=== PATIENT | female | born 1950 | race Caucasian/White ===

== ENCOUNTER 2016-11-24 17:11 | Emergency (ER) | payer OTHER, BC ==
[2016-11-24 17:20] VITALS: BP 101/66; PULSE 82; TEMP 98.4; BMI 26.1
--- NOTE | 2016-11-24 17:33 | PDOC ---
History of Present Illness - General History Source: Patient, Old Records Exam Limitations: No Limitations - History of Present Illness Initial Comments: 11/24/16 17:43 The patient is a 66 year old female with a significant past medical history of kidney stones who presents to the emergency department today complaining of shortness of breath since this morning. The patient states that she was reclining when her most recent episode occurred. The patient noted that her shortness of breath is accompanied by brief, 3-4 second palpitations. The patient notes that her symptoms are alleviated long inspirational breaths and burping. The patient states the she experienced similar symptoms in mid October that resolved. The patient denies chest pain, blackout , or dizziness. The patient denies nausea, vomiting, and sweats The patient denies any previous heart complications. <Tre Guerrero - Last Filed: 11/24/16 17:51> <Karin Zheng - Last Filed: 11/24/16 17:59> - General Chief Complaint: Shortness of Breath Stated Complaint: shortness of breath Time Seen by Provider: 11/24/16 17:17 Past History <Tre Guerrero - Last Filed: 11/24/16 17:51> - Past Medical History Suicide Attempt (Hx): No Other medical history: pt denies - Immunization History Immunization Up to Date: Yes - Psycho/Social/Smoking Cessation Hx Anxiety: No Suicidal Ideation: No Smoking Status: No Smoking History: Never smoked Have you smoked in the past 12 months: No Number of Cigarettes Smoked Daily: 0 If you are a former smoker, when did you quit?: 0 Cigars Per Day: 0 Information on smoking cessation initiated: No Hx Alcohol Use: No Drug/Substance Use Hx: No Substance Use Type: None <Karin Zheng - Last Filed: 11/24/16 17:59> - Past Medical History Allergies/Adverse Reactions: Allergies Allergy/AdvReac Type Severity Reaction Status Date / Time Penicillins AdvReac Mild Nausea Verified 11/24/16 17:16 Sulfa (Sulfonamide AdvReac Mild Nausea Verified 11/24/16 17:16 Antibiotics) Home Medications: Ambulatory Orders NK [No Known Home Medication] 11/24/16 Review of Systems - Review of Systems Able to Perform ROS?: Yes Comments:: 11/24/16 17:45 GENERAL/CONSTITUTIONAL: No fever or chills. No weakness. HEAD, EYES, EARS, NOSE AND THROAT: No change in vision. No ear pain or discharge. No sore throat. CARDIOVASCULAR: (+) Shortness of breath accompanied by minor palpitations. No chest pain. RESPIRATORY: No cough, wheezing, or hemoptysis. GASTROINTESTINAL: No nausea, vomiting, diarrhea or constipation. GENITOURINARY: No dysuria, frequency, or change in urination. MUSCULOSKELETAL: No joint or muscle swelling or pain. No neck or back pain. SKIN: No rash NEUROLOGIC: No headache, vertigo, loss of consciousness, or change in strength/ sensation. ENDOCRINE: No increased thirst. No abnormal weight change. HEMATOLOGIC/LYMPHATIC: No anemia, easy bleeding, or history of blood clots. ALLERGIC/IMMUNOLOGIC: No hives or skin allergy. <Tre Guerrero - Last Filed: 11/24/16 17:51> *Physical Exam - Vital Signs Last Vital Signs Temp Pulse Resp BP Pulse Ox 98.4 F 82 18 101/66 100 11/24/16 17:17 11/24/16 17:17 11/24/16 17:17 11/24/16 17:17 11/24/16 17:17 - Physical Exam Comments: 11/24/16 17:46 GENERAL: Awake, alert, and fully oriented, in no acute distress HEAD: No signs of trauma EYES: PERRLA, EOMI, sclera anicteric, conjunctiva clear ENT: Auricles normal inspection, hearing grossly normal, nares patent, oropharynx clear without exudates. Moist mucosa NECK: Normal ROM, supple, no lymphadenopathy, JVD, or masses LUNGS: Breath sounds equal, clear to auscultation bilaterally. No wheezes, and no crackles HEART: Regular rate and rhythm, normal S1 and S2, no murmurs, rubs or gallops ABDOMEN: Soft, nontender, normoactive bowel sounds. No guarding, no rebound. No masses EXTREMITIES: Normal range of motion, no edema. No clubbing or cyanosis. No cords, erythema, or tenderness NEUROLOGICAL: Cranial nerves II through XII grossly intact. Normal speech, normal gait SKIN: Warm, Dry, normal turgor, no rashes or lesions noted. <Tre Guerrero - Last Filed: 11/24/16 17:51> - Vital Signs Last Vital Signs Temp Pulse Resp BP Pulse Ox 98.4 F 82 18 101/66 100 11/24/16 17:17 11/24/16 17:17 11/24/16 17:17 11/24/16 17:17 11/24/16 17:17 <Karin Zheng - Last Filed: 11/24/16 17:59> Heart Score/ECG Review - ECG Impressions Comment:: EKG read 17:54- NSR 72 bpm, no acute ST/T changes <Karin Zheng - Last Filed: 11/24/16 17:59> *DC/Admit/Observation/Transfer - Attestations Scribe Attestion: 11/24/16 17:46 Documentation prepared by Tre Guerrero, acting as medical laboratory technical officer for Karin Zheng MD. <Tre Guerrero - Last Filed: 11/24/16 17:51> - Discharge Dispostion Admit: No <Karin Zheng - Last Filed: 11/24/16 17:59> Diagnosis at time of Disposition: Shortness of breath - Discharge Dispostion Condition at time of disposition: Stable - Patient Instructions Printed Discharge Instructions: DI for Shortness of Breath
[2016-11-24 18:10] LABS: BASOPHIL 0.4 % (0-2.0); EOSINOPHIL 1.1 % (0-4.5); MCH 30.9 pg (25.7-33.7); MCHC 33.4 g/dl (32.0-36.0); MEAN CELL VOLUME 92.4 fl (80-96); MEAN PLT VOLUME 8.4 fl (7.5-11.1); NEUTROPHILS 71.4 % (42.8-82.8); PLATELET COUNT 159 K/MM3 (134-434); RDW 11.7 % (11.6-15.6); WHITE BLOOD COUNT 5.4 K/mm3 (4.0-10.0)
[2016-11-24 18:32] LABS: ALBUMIN 3.9 g/dl (3.5-5.0); BILIRUBIN,TOTAL 0.5 mg/dl (0.2-1.0); CALCIUM 8.7 mg/dl (8.4-10.2); CPK(DFH) 59 IU/L (26-140); TOT PROT 6.5 g/dl (6.4-8.3)
[2016-11-24 18:56] LABS: TROPONIN I (DFP) < 0.03 ng/ml (0.03-0.50)
--- NOTE | 2016-12-02 10:28 | EKG ---
Test Reason : Blood Pressure : / mmHG Vent. Rate : 072 BPM Atrial Rate : 072 BPM P-R Int : 122 ms QRS Dur : 074 ms QT Int : 406 ms P-R-T Axes : 024 057 055 degrees QTc Int : 444 ms NORMAL SINUS RHYTHM NORMAL ECG WHEN COMPARED WITH ECG OF 08-OCT-2013 04:15, PREVIOUS ECG HAS UNDETERMINED RHYTHM, NEEDS REVIEW Confirmed by DEANGELO MAN, SHAHZAD ([id number]) on 12/02/2016 10:28:02 AM Referred By: DR CAI Confirmed By:SHAHZAD BRIGHT MD
== END 2016-11-24 19:09 | disposition home or self-care (01) ==
LOC: FER 17:11
DX: R06.02 Shortness of breath (principal); Z87.442 Personal history of urinary calculi
CPT/HCPCS: 36415; 71010-TC; 80053; 82550; 84484; 85025; 93005; 99282-25

== ENCOUNTER 2017-02-06 17:05 | Emergency (ER) | payer OTHER, BC ==
[2017-02-06 17:09] VITALS: BP 121/71; PULSE 68; TEMP 98.3; BMI 27.1
--- NOTE | 2017-02-06 17:23 | PDOC ---
History of Present Illness - General Chief Complaint: Pain, Acute Stated Complaint: NECK PAIN Time Seen by Provider: 02/06/17 17:07 History Source: Patient Exam Limitations: No Limitations - History of Present Illness Initial Comments: 02/06/17 17:19 The patient is a 66-year-old female, with no significant past medical history, who presents to the emergency department with left-sided neck pain for the past 48 hours. She states that she was in her usual state of health, until she woke up 2 days ago with "a stiff neck." She has left sided, mild, dull, aching pain that is present at most times during the day. It is alleviated by "certain positions." It is worsened by movement at the neck and left shoulder. It does not radiate. She denies headache, focal weakness or paresthesias. She denies fever, rash, photophobia. She denies trauma. She states that she took Aleve yesterday, with complete resolution of the pain. However, it reoccurred after 6 hours. She states that she feels "that the muscles on the left side of her neck or stiff." Past History - Past Medical History Allergies/Adverse Reactions: Allergies Allergy/AdvReac Type Severity Reaction Status Date / Time Penicillins AdvReac Mild Nausea Verified 02/06/17 17:06 Sulfa (Sulfonamide AdvReac Mild Nausea Verified 02/06/17 17:06 Antibiotics) Home Medications: Ambulatory Orders Diazepam [Valium] 5 mg PO HS PRN #2 tablet MDD 3 02/06/17 Naproxen [Naprosyn] 500 mg PO BID PRN #20 tablet 02/06/17 Suicide Attempt (Hx): No Other medical history: DENIES - Immunization History Immunization Up to Date: Yes - Psycho/Social/Smoking Cessation Hx Anxiety: No Suicidal Ideation: No Smoking Status: No Smoking History: Never smoked Have you smoked in the past 12 months: No Number of Cigarettes Smoked Daily: 0 If you are a former smoker, when did you quit?: 0 Cigars Per Day: 0 Hx Alcohol Use: No Drug/Substance Use Hx: No Substance Use Type: None Review of Systems - Review of Systems Comments:: 02/06/17 17:20 CONSTITUTIONAL: Absent: fever, chills, fatigue EYES: Absent: visual changes ENT: Absent: ear pain, sore throat CARDIOVASCULAR: Absent: chest pain, palpitations, loss of consciousness RESPIRATORY: Absent: cough, SOB GI: Absent: abdominal pain, nausea, vomiting, constipation, diarrhea GENITOURINARY: Absent: dysuria, frequency, hematuria MUSKULOSKELETAL: Present: See history of present illness SKIN: Absent: rash NEURO: Absent: headache, dizziness *Physical Exam - Vital Signs Last Vital Signs Temp Pulse Resp BP Pulse Ox 98.3 F 68 18 121/71 100 02/06/17 17:06 02/06/17 17:06 02/06/17 17:06 02/06/17 17:06 02/06/17 17:06 - Physical Exam Comments: 02/06/17 17:20 GENERAL: Well-appearing, well-nourished. No apparent distress. HEENT: Normocephalic, atraumatic. PERRL, EOM intact. NECK: No cervical spine tenderness. Carotid pulses 2+ and symmetric. No carotid bruits auscultated. There is left cervical, lower, paraspinal muscle tenderness and spasm. There is left upper trapezius muscle tenderness and spasm. Palpation of both muscle bodies reproduces her symptoms. CARDIOVASCULAR: Normal S1, S2. Regular rate and rhythm. PULMONARY: Clear to auscultation bilaterally. ABDOMEN: Soft, non-distended, non-tender. EXTREMITIES: Normal ROM in all four extremities. No gross deformities. SKIN: Warm, dry. No rash NEUROLOGICAL: No focal neurological deficits. Medical Decision Making - Medical Decision Making 02/06/17 17:21 The patient is well-appearing and in no acute distress Her clinical presentation is most consistent with cervical paraspinal muscle strain and associated trapezius muscle strain Clinical impression: Cervical paraspinal muscle strain Trapezius muscle strain I discussed the physical exam findings, ancillary test results and final diagnoses with the patient. I answered all of the patient's questions. The patient was satisfied with the care received and felt comfortable with the discharge plan and treatment plan. The patient will call their primary care physician within 24 hours to arrange follow-up and will return to the Emergency Department with any new, persistent or worsening symptoms. *DC/Admit/Observation/Transfer Diagnosis at time of Disposition: Cervical muscle strain, Trapezius muscle strain - Discharge Dispostion Disposition: HOME Condition at time of disposition: Stable - Prescriptions Prescriptions: Naproxen [Naprosyn] 500 mg PO BID PRN #20 tablet PRN Reason: Pain Diazepam [Valium] 5 mg PO HS PRN #2 tablet MDD 3 PRN Reason: Pain - Patient Instructions Printed Discharge Instructions: Muscle Strain, DI for Cervical Muscle Strain Additional Instructions: Return to the emergency department immediately with ANY new, persistent or worsening symptoms. You MUST call and follow up with your doctor tomorrow. Please make sure your doctor reviews the results of your emergency department evaluation.
== END 2017-02-06 17:33 | disposition home or self-care (01) ==
LOC: FER 17:05
DX: S16.1XXA Strain of muscle, fascia and tendon at neck level, initial encounter (principal); S46.812A Strain of other muscles, fascia and tendons at shoulder and upper arm level, left arm, initial encounter; X58.XXXA Exposure to other specified factors, initial encounter; Y93.9 Activity, unspecified; Y92.9 Unspecified place or not applicable
CPT/HCPCS: 99282-25

== ENCOUNTER 2019-06-29 10:09 | Emergency (ER) | payer OTHER, BC | END 2019-06-29 15:25 | disposition home or self-care (01) | LOC: JER 10:09 ==

== ENCOUNTER 2019-10-29 17:02 | Inpatient (IN) | payer OTHER, BC ==
[2019-10-29] MEDS ORDERED: SODIUM CHLORIDE 1,000 ML IV STA (17:46)
[2019-10-29] MEDS ORDERED: ACETAMINOPHEN 1000 MG/100 ML VIAL (NON FORMULARY) IVPB ONE (17:46)
[2019-10-29] MEDS ORDERED: ACETAMINOPHEN INJECTION 100 ML IVPB ONE (17:50)
[2019-10-29 18:10] LABS: BASO % 0.2 % (0-2.0); EOS % 0.1 % (0-4.5); HEMOGLOBIN 12.9 GM/dl (10.7-15.3); MCH 31.6 pg (25.7-33.7); MEAN CELL VOLUME 95.7 fl (80-96); MEAN PLT VOLUME 9.5 fl (7.5-11.1); NEUT % 86.7 % (42.8-82.8); PLATELET COUNT 132 K/MM3 (134-434); RBC 4.08 M/mm3 (3.60-5.2); RDW 12.2 % (11.6-15.6); WHITE BLOOD COUNT 6.7 K/mm3 (4.0-10.8)
[2019-10-29 18:16] LABS: EPITHELIAL CELLS FEW /hpf
[2019-10-29 18:23] LABS: ALBUMIN 3.5 g/dl (3.4-5.0); BILIRUBIN,TOTAL 0.8 mg/dl (0.2-1); CALCIUM 8.3 mg/dl (8.5-10); POTASSIUM 3.8 mmol/L (3.5-5.1); TOT PROT 6.4 g/dl (6.4-8.2)
--- NOTE | 2019-10-29 18:44 | PDOC ---
*Physical Exam - Vital Signs Last Vital Signs Temp Pulse Resp BP Pulse Ox 101 F H 101 H 18 105/70 97 10/29/19 17:02 10/29/19 17:02 10/29/19 17:02 10/29/19 17:02 10/29/19 17:02 ED Treatment Course - LABORATORY CBC & Chemistry Diagram: 10/29/19 17:58 10/29/19 17:58 - ADDITIONAL ORDERS Additional order review: Laboratory Results 10/29/19 12 17:58 17:58 Sodium 135 L Potassium 3.8 Chloride 100 Carbon Dioxide 27 Anion Gap 8 BUN 17.0 Creatinine 1.0 Est GFR (CKD-EPI)AfAm 66.57 Est GFR (CKD-EPI)NonAf 57.44 Random Glucose 119 H Calcium 8.3 L Total Bilirubin 0.8 AST 29 ALT 31 Alkaline Phosphatase 61 Total Protein 6.4 Albumin 3.5 Urine Color Yellow Urine Appearance Clear Urine pH 7.0 Urine Protein 2+ H Urine Glucose (UA) Negative Urine Ketones 2+ H Urine Blood 1+ H Urine Nitrite Negative Urine Bilirubin 1+ H Urine Urobilinogen 1.0 Ur Leukocyte Esterase Negative Urine RBC 5-10 Urine WBC 0-2 Ur Transition Epith Cell Few 10/29/19 17:58 RBC 4.08 MCV 95.7 MCHC 33.0 RDW 12.2 MPV 9.5 Neutrophils % 86.7 H Lymphocytes % 6.0 L Monocytes % 7.0 Eosinophils % 0.1 Basophils % 0.2 - Medications Given in the ED: ED Medications Discontinued Medications Generic Name Dose Route Start Last Admin Trade Name Sharon PRN Reason Stop Dose Admin Acetaminophen 1,000 mg 10/29/19 17:46 10/29/19 18:00 Ofirmev Injection - IVPB 10/29/19 17:47 1,000 mg ONCE ONE Administration Medical Decision Making - Medical Decision Making 10/29/19 20:56 Pt was signed out to me. She came with fever and RLQ pain. She has a hx of diverticulitis and colitis. She has ill contacts - her granddaughter recently had a cold and she drives her grandchildren to school, so it is possible that the fever is related to that. Pt has normal labs; No WBC count. She has no fever at this time; but she still has RLQ pain and some R flank pain. Pt has no dyuria. She has remote history of a kidney stone x 2 in 2012, but never since that time. She states that this doesn't feel like her stone and she has no dysuria. 10/29/19 21:42 Patient Name: YI GARCIA THIS IS A PRELIMINARY REPORT FROM IMAGING OFFICE SECRETARY DATE OF SERVICE: 2019-10-29 19:17:48 IMAGES: [id number] EXAM: ABDOMEN \T\ PELVIS CT WITH CONTR HISTORY: Right lower quadrant abdominal pain. Procedure: Contiguous axial tomographic sections were obtained from the dome of the diaphragm to the bilateral ischial tuberosities after the use of intravenous contrast. Sagittal and coronal reformatted images are provided. COMPARISON: October 08, 2013. Preliminary findings/impression: 1. Findings consistent with acute appendicitis. 2. Abdominal and pelvic ileus, likely secondary to the above. 3. Hypodense bilateral renal lesions, consistent with cysts. A follow-up CT is recommended to confirm stability. 4. Atrophic pancreatic parenchyma. 5. Mild atherosclerotic calcifications. 6. Additional findings as described above appear stable 10/29/19 21:42 Pt's PMD is Maximino; he admits to [facility] 10/29/19 22:49 Suri Medrano is aware of the patient. He will have pt transferred to the [facility] ; no beds there currently. Pt will be admitted upstairs as a Satellite patient tomorrow AM transfer to [facility]. Pt is PCN and SULFA allergy; she will be treated with levaquin and flagyl. Discharge - Discharge Information Problems reviewed: Yes Clinical Impression/Diagnosis: Right lower quadrant pain, Appendicitis Condition: Guarded - Admission Yes - Follow up/Referral - Patient Discharge Instructions - Post Discharge Activity
--- NOTE | 2019-10-29 18:59 | PDOC ---
Documentation entered by Solange Lee SCRIBE, acting as scribe for Senthil Gil MD. Senthil Gil MD: This documentation has been prepared by the alfonsoibeJesus Maria, SCRIBE, under my direction and personally reviewed by me in its entirety. I confirm that the documentation accurately reflects all work, treatment, procedures, and medical decision making performed by me. History of Present Illness - General Chief Complaint: Pain Stated Complaint: RLQ ABD, BACK PAIN, FEVER Time Seen by Provider: 10/29/19 17:28 - History of Present Illness Initial Comments: 10/29/19 18:05 Patient is a 69 year old female with a significant past medical history of diverticulosis,colon adenoma and kidney stones who presents to the emergency department with 1 day of right lower quadrant abdominal pain, back pain and fever with a severity of 7/10. Patient states that prior to her pain she had cold like symptoms and 5 episodes of associated NBNB diarrhea and 2 episodes of vomiting with a fever of 101. Patient states the pain worsens when ambulating and is tender to palpations. She denies headache or dizziness. She denies recent dysuria, frequency, urgency or hematuria. She denies recent chest pain or shortness of breath. Allergies: Erythromycin base, Penicillins, and Sulfa (Sulfonamide Antibiotics) Past surgical history: None reported. Social history: Nonsmoker. Denies EtOH use and recreational drug use. Past History - Past Medical History Allergies/Adverse Reactions: Allergies Allergy/AdvReac Type Severity Reaction Status Date / Time erythromycin base Allergy Severe PALPITATION Verified 10/29/19 17:06 S Penicillins AdvReac Mild Nausea Verified 10/29/19 17:06 Sulfa (Sulfonamide AdvReac Mild Nausea Verified 10/29/19 17:06 Antibiotics) Home Medications: Ambulatory Orders Bifidobacterium Infantis [Align] 10.5 mg PO DAILY 10/29/19 Multivit-Min/Folic Acid/Dhm095 [Alive Women's Gummy Vitamins] 1 each PO DAILY Cardiac Disorders: Yes (MILD VALVE CALCIFICATION) COPD: No GI Disorders: Yes (COLON ADENOMA, DIVERTICULOSIS) Kidney Stones: Yes - Immunization History Immunization Up to Date: Yes - Psycho Social/Smoking Cessation Hx Smoking Status: No Smoking History: Never smoked Have you smoked in the past 12 months: No Number of Cigarettes Smoked Daily: 0 If you are a former smoker, when did you quit?: 0 Cigars Per Day: 0 Information on smoking cessation initiated: No Hx Alcohol Use: No Drug/Substance Use Hx: No Substance Use Type: None Review of Systems - Review of Systems Able to Perform ROS?: Yes Comments:: 10/29/19 18:05 CONSTITUTIONAL:+ Fever. +Chills. Absent: Diaphoresis, Generalized Weakness, Malaise, Loss of Appetite HEENT: Absent: Rhinorrhea, Nasal Congestion, Throat Pain, Throat Swelling, Difficulty Swallowing, Mouth Swelling, Ear Pain, Eye Pain, Visual Changes CARDIOVASCULAR: Absent: Chest Pain, Syncope, Palpitations, Irregular Heart Rate, Lightheadedness , Peripheral Edema RESPIRATORY: Absent: Cough, Shortness of Breath, SOB with Exertion, Orthopnea, Wheezing, Stridor, Hemoptysis GASTROINTESTINAL:+Abdominal Pain. +Nausea. +Vomiting, +Diarrhea Absent: Abdominal Distension, Constipation, Melena, Hematochezia GENITOURINARY: Absent: Dysuria, Frequency, Urgency, Hesitancy, Flank Pain, Genital Pain MUSCULOSKELETAL:+Back pain. Absent: Myalgia, Arthralgia, Joint Swelling, Neck Pain SKIN: Absent: Rash, Itching, Pallor HEMEATOLOGIC/IMMUNOLOGIC: Absent: Easy Bleeding, Easy Bruising, Lymphadenopathy, Frequent infections ENDOCRINE: Absent: Unexplained Weight Gain, Unexplained Weight Loss, Heat Intolerance, Cold Intolerance NEUROLOGIC: Absent: Headache, Focal Weakness, Paresthesias, Vertigo, Lightheadedness, Unsteady Gait, Seizure, Mental Status Changes, Incontinence PSYCHIATRIC: Absent: Anxiety, Depression *Physical Exam - Vital Signs Last Vital Signs Temp Pulse Resp BP Pulse Ox 101 F H 101 H 18 105/70 97 10/29/19 17:02 10/29/19 17:02 10/29/19 17:02 10/29/19 17:02 10/29/19 17:02 - Physical Exam 10/29/19 18:57 GENERAL: The patient is awake, alert, and fully oriented, in no acute distress. Skin is warm. HEAD: Normal with no signs of trauma. EYES: Pupils equal, round and reactive to light, extraocular movements intact, sclera anicteric, conjunctiva clear. ENT: Ears normal, nares patent, oropharynx clear without exudates. Moist mucous membranes. NECK: Normal range of motion, supple without lymphadenopathy, JVD, or masses. LUNGS: Breath sounds equal, clear to auscultation bilaterally. No wheezes, and no crackles. HEART: Mild tachycardia. Regular rate and rhythm, normal S1 and S2 without murmur, rub or gallop. ABDOMEN: The abdomen is soft with significant focal tenderness in the right lower quadrant in the region of McBurney's point. There is no Gill sign. There is no guarding or rebound. There is no tenderness in the upper abdomen or in the left lower quadrant. EXTREMITIES: Normal range of motion, no edema. No clubbing or cyanosis. No cords, erythema, or tenderness. NEUROLOGICAL: Cranial nerves II through XII grossly intact. Normal speech, normal gait. PSYCH: Normal mood, normal affect. SKIN: Warm, Dry, normal turgor, no rashes or lesions noted. ED Treatment Course - LABORATORY CBC & Chemistry Diagram: 10/29/19 17:58 10/29/19 17:58 - RADIOLOGY Radiology Studies Ordered: Category Date Time Status ABDOMEN & PELVIS CT WITH CONTR [CT] Stat CT Scan 10/29/19 17:44 Ordered Medical Decision Making - Medical Decision Making 10/29/19 18:57 Patient is a 69-year-old woman with a history of prior diverticulitis and colitis. She presents 3 days of cough, and now 24 hours of diarrhea and nausea with right lower quadrant abdominal pain. On examination there is focal right lower quadrant tenderness without guarding or rebound tenderness. Initial impression is diverticulitis versus acute appendicitis. Patient will be hydrated with IV normal saline, laboratory and urine work-up has been ordered, and CT scan of the abdomen and pelvis with IV contrast has been ordered. Patient endorsed to Dr. Jody Gregory at 7 PM with work-up results pending. Further plan pending results and serial evaluation. Discharge - Discharge Information Problems reviewed: Yes Clinical Impression/Diagnosis: Right lower quadrant pain - Follow up/Referral Referrals: Garth Stanton MD [Primary Care Provider] - - Patient Discharge Instructions - Post Discharge Activity
[2019-10-29] MEDS ORDERED: morphine SULFATE 4 MG/ML VIAL IVPUSH PRN (21:58)
[2019-10-29] MEDS ORDERED: SODIUM CHLORIDE 1,000 ML IV SCH (22:00)
[2019-10-29] MEDS ORDERED: ACETAMINOPHEN 1000 MG/100 ML VIAL (NON FORMULARY) IVPB PRN (23:53)
--- NOTE | 2019-10-29 23:53 | HP ---
CHIEF COMPLAINT: right lower quadrant pain and fever PCP:Dr. Stanton GI: Dr. Ugalde HISTORY OF PRESENT ILLNESS: 69 year old female with history of diverticulosis,colon adenoma and kidney stones who presents to the emergency department with 1 day of right lower quadrant abdominal pain, back pain and fever with a severity of 7/10. She reported prior to her pain she had cold like symptoms and 5 episodes of associated diarrhea and 2 episodes of vomiting with a fever of 101. Patient states the pain worsens when she is ambulating and is tender to touch. Upon evaluation in the ER CT can of abdomen demonstrated acute appendicitis. She was given a dose of Ofirmev, IV flagyl and levoquin and intravenous fluids. Surgery - Dr. Medrano was consulted and plan is to transfer patient to [facility] when bed is available. Recent Travel: no PAST MEDICAL HISTORY: diverticulosis PAST SURGICAL HISTORY: none Social History: Smoking:no Alcohol:no Drugs: no Allergies erythromycin base Allergy (Severe, Verified 10/29/19 17:06) PALPITATIONS Penicillins Adverse Reaction (Mild, Verified 10/29/19 17:06) Nausea Sulfa (Sulfonamide Antibiotics) Adverse Reaction (Mild, Verified 10/29/19 17:06) Nausea HOME MEDICATIONS: Home Medications Medication Instructions Recorded Bifidobacterium Infantis [Align] 10.5 mg PO DAILY 10/29/19 Multivit-Min/Folic Acid/[id number] 1 each PO DAILY 10/29/19 [Alive Women's Gummy Vitamins] REVIEW OF SYSTEMS CONSTITUTIONAL: Absent: fever, chills, diaphoresis, generalized weakness, malaise, loss of appetite, weight change HEENT: Absent: rhinorrhea, nasal congestion, throat pain, throat swelling, difficulty swallowing, mouth swelling, ear pain, eye pain, visual changes CARDIOVASCULAR: Absent: chest pain, syncope, palpitations, irregular heart rate, lightheadedness , peripheral edema RESPIRATORY: Absent: cough, shortness of breath, dyspnea with exertion, orthopnea, wheezing, stridor, hemoptysis GASTROINTESTINAL: Absent: RLQ abdominal pain, abdominal distension, nausea, vomiting, diarrhea, constipation, melena, hematochezia GENITOURINARY: Absent: dysuria, frequency, urgency, hesitancy, hematuria, flank pain, genital pain MUSCULOSKELETAL: Absent: myalgia, arthralgia, joint swelling, back pain, neck pain SKIN: Absent: rash, itching, pallor HEMATOLOGIC/IMMUNOLOGIC: Absent: easy bleeding, easy bruising, lymphadenopathy, frequent infections ENDOCRINE: Absent: unexplained weight gain, unexplained weight loss, heat intolerance, cold intolerance NEUROLOGIC: Absent: headache, focal weakness or paresthesias, dizziness, unsteady gait, seizure, mental status changes, bladder or bowel incontinence PSYCHIATRIC: Absent: anxiety, depression, suicidal or homicidal ideation, hallucinations. PHYSICAL EXAMINATION Vital Signs - 24 hr 10/29/19 10/29/19 10/29/19 17:02 20:07 23:01 Temperature 101 F H 99 F 98.6 F Pulse Rate 101 H Pulse Rate [ 86 85 Left Apical] Respiratory 18 16 16 Rate Blood Pressure 105/70 Blood Pressure 109/63 109/83 [Right Arm] O2 Sat by Pulse 97 98 100 Oximetry (%) GENERAL: awake alert and fully oriented no acute distress HEAD: normal EYES: pupils equal round and reactive to light EARS, NOSE, THROAT: ears normal nares patent NECK:normal LUNGS: breath sounds clear to auscultation bilaterally nonlabored breathing effort no use of accessory muscles HEART: regular rate and rhythm, normal S1 and S2 ABDOMEN: tenderness to right lower quadrant on deep palpation no acute abdomen MUSCULOSKELETAL: normal ROM UPPER EXTREMITIES: 2+ pulses warm, well-perfused no cyanosis LOWER EXTREMITIES: 2+ pulses warm on palpation well-perfused no pitting edema NEUROLOGICAL: no neuro focal deficits PSYCHIATRIC: cooperative SKIN: warm dry normal turgor no rashes or lesions noted Laboratory Results - last 24 hr 10/29/19 10/29/19 10/29/19 17:58 17:58 17:58 WBC 6.7 RBC 4.08 Hgb 12.9 Hct 39.0 MCV 95.7 MCH 31.6 MCHC 33.0 RDW 12.2 Plt Count 132 L MPV 9.5 Absolute Neuts (auto) 5.8 Neutrophils % 86.7 H Lymphocytes % 6.0 L Monocytes % 7.0 Eosinophils % 0.1 Basophils % 0.2 Sodium 135 L Potassium 3.8 Chloride 100 Carbon Dioxide 27 Anion Gap 8 BUN 17.0 Creatinine 1.0 Est GFR (CKD-EPI)AfAm 66.57 Est GFR (CKD-EPI)NonAf 57.44 Random Glucose 119 H Calcium 8.3 L Total Bilirubin 0.8 AST 29 ALT 31 Alkaline Phosphatase 61 Total Protein 6.4 Albumin 3.5 Urine Color Yellow Urine Appearance Clear Urine pH 7.0 Urine Protein 2+ H Urine Glucose (UA) Negative Urine Ketones 2+ H Urine Blood 1+ H Urine Nitrite Negative Urine Bilirubin 1+ H Urine Urobilinogen 1.0 Ur Leukocyte Esterase Negative Urine RBC 5-10 Urine WBC 0-2 Ur Transition Epith Cell Few ASSESSMENT/PLAN: Mrs. Hernandez is a 69 year old female with history of diverticulosis,colon adenoma and kidney stones who presented with right lower quadrant pain and fever. CT can of abdomen demonstrated acute appendicitis. Admit to [facility]. Patient being transferred to [facility] when bed is available. 1. Acute Appendicitis Symptomatic with abdominal tenderness,no leukocytosis, currently afebrile, BP stable, no tachycardia She was given a dose of IV Ofirmev with improvement in pain, a dose of IV Flagyl and Levoquin and intravenous fluids. Surgery - Dr. Medrano consulted NPO Continue with IVF NS at 60cc/hr Tylenol IV for pain and fever Morphine IV for severe pain as needed Visit type - Emergency Visit Emergency Visit: Yes ED Registration Date: 10/29/19 Care time: The patient presented to the Emergency Department on the above date and was hospitalized for further evaluation of their emergent condition. - New Patient This patient is new to me today: Yes Date on this admission: 10/30/19 - Critical Care Critical Care patient: No
[2019-10-30 00:05] VITALS: BMI 27.6
--- NOTE | 2019-10-30 07:22 | CONSULT ---
- Consultation REQUESTING PROVIDER: CONSULT REQUEST: We have been asked to surgically evaluate this patient for acute appendicitis PCP:Jessa North HISTORY OF PRESENT ILLNESS: 69 year old female with history of diverticulosis, colon adenoma and kidney stones who presented to the emergency department with 1 day of right lower quadrant abdominal pain, back pain and fever with a severity of 7/10. She reported prior to her pain she had cold like symptoms and 5 episodes of associated diarrhea and 2 episodes of vomiting with a fever of 101. Patient states the pain worsens when she is ambulating and is tender to touch. Upon evaluation in the ER CT can of abdomen demonstrated acute appendicitis. Recent Travel: no PAST MEDICAL HISTORY: diverticulosis PAST SURGICAL HISTORY: none Social History: Smoking:no Alcohol:no Drugs: no Allergies erythromycin base Allergy (Severe, Verified 10/29/19 17:06) PALPITATIONS Penicillins Adverse Reaction (Mild, Verified 10/29/19 17:06) Nausea Sulfa (Sulfonamide Antibiotics) Adverse Reaction (Mild, Verified 10/29/19 17:06) Nausea HOME MEDICATIONS: Home Medications Medication Instructions Recorded Bifidobacterium Infantis [Align] 10.5 mg PO DAILY 10/29/19 Multivit-Min/Folic Acid/[id number] 1 each PO DAILY 10/29/19 [Alive Women's Gummy Vitamins] REVIEW OF SYSTEMS CONSTITUTIONAL: Absent: +fever, chills, diaphoresis, generalized weakness, malaise, loss of appetite, weight change HEENT: Absent: rhinorrhea, nasal congestion, throat pain, throat swelling, difficulty swallowing, visual changes CARDIOVASCULAR: Absent: chest pain, syncope, palpitations, irregular heart rate, lightheadedness , RESPIRATORY: Absent: cough, shortness of breath, dyspnea with exertion, orthopnea, GASTROINTESTINAL: Absent: +RLQ abdominal pain, abdominal distension, nausea, +vomiting, diarrhea, constipation, GENITOURINARY: Absent: dysuria, frequency, urgency, hesitancy, hematuria, flank pain, genital pain MUSCULOSKELETAL: Absent: myalgia, arthralgia, joint swelling, back pain, neck pain SKIN: Absent: rash, itching, pallor HEMATOLOGIC/IMMUNOLOGIC: Absent: easy bleeding, easy bruising, lymphadenopathy, frequent infections ENDOCRINE: Absent: unexplained weight gain, unexplained weight loss, heat intolerance, cold intolerance NEUROLOGIC: Absent: headache, focal weakness or paresthesias, dizziness, unsteady gait, seizure, mental status changes, bladder or bowel incontinence PSYCHIATRIC: Absent: anxiety, depression, suicidal or homicidal ideation, hallucinations. PHYSICAL EXAMINATION Vital Signs Temp 98.9 F 10/30/19 06:00 Pulse 112 H 10/30/19 06:00 Resp 16 10/30/19 06:00 BP 151/61 10/30/19 06:00 Pulse Ox 99 10/30/19 06:00 Intake & Output 10/29/19 10/29/19 10/30/19 11:59 23:59 11:59 Intake Total 300 Balance 300 Weight 132 lb 132 lb 2 oz Intake: IV 300 Normal Saline - 1,000 ml 300 @ 50 mls/hr IV ASDIR ONEYDA Rx#:[id number] Other: Voiding Method Toilet Toilet # Unmeasured Voids Void 1 Bowel Movement No Height 4 ft 10 in Body Mass Index (BMI) 27.6 Weight Measurement Method Standing Scale Standing Scale GENERAL: awake alert and fully oriented no acute distress HEAD: normal EYES: pupils equal round and reactive to light EARS, NOSE, THROAT: ears normal nares patent LUNGS: unlabored breathing effort no use of accessory muscles on RA HEART: regular rate and rhythm, normal S1 and S2 ABDOMEN: obese, tenderness to right lower quadrant on deep palpation no acute abdomen MUSCULOSKELETAL:moving all extremities without limitation UPPER EXTREMITIES: 2+ pulses warm, well-perfused no cyanosis LOWER EXTREMITIES: 2+ pulses warm on palpation well-perfused no pitting edema NEUROLOGICAL: no neuro focal deficits PSYCHIATRIC: cooperative SKIN: warm dry normal turgor no rashes or lesions noted Abnormal Lab Results 10/29/19 10/29/19 10/29/19 17:58 17:58 17:58 Plt Count 132 L Neutrophils % 86.7 H Lymphocytes % 6.0 L Sodium 135 L Random Glucose 119 H Calcium 8.3 L Urine Protein 2+ H Urine Ketones 2+ H Urine Blood 1+ H Urine Bilirubin 1+ H Laboratory Results - last 24 hr 10/29/19 10/29/19 10/29/19 17:58 17:58 17:58 WBC 6.7 RBC 4.08 Hgb 12.9 Hct 39.0 MCV 95.7 MCH 31.6 MCHC 33.0 RDW 12.2 Plt Count 132 L MPV 9.5 Absolute Neuts (auto) 5.8 Neutrophils % 86.7 H Lymphocytes % 6.0 L Monocytes % 7.0 Eosinophils % 0.1 Basophils % 0.2 Sodium 135 L Potassium 3.8 Chloride 100 Carbon Dioxide 27 Anion Gap 8 BUN 17.0 Creatinine 1.0 Est GFR (CKD-EPI)AfAm 66.57 Est GFR (CKD-EPI)NonAf 57.44 Random Glucose 119 H Calcium 8.3 L Total Bilirubin 0.8 AST 29 ALT 31 Alkaline Phosphatase 61 Total Protein 6.4 Albumin 3.5 Urine Color Yellow Urine Appearance Clear Urine pH 7.0 Urine Protein 2+ H Urine Glucose (UA) Negative Urine Ketones 2+ H Urine Blood 1+ H Urine Nitrite Negative Urine Bilirubin 1+ H Urine Urobilinogen 1.0 Ur Leukocyte Esterase Negative Urine RBC 5-10 Urine WBC 0-2 Ur Transition Epith Cell Few CT abdomen/pelvis 10/29/19: wet read consistent with acute appendicitis Problem List - Problems (1) Appendicitis Assessment/Plan: 69 year old female with history of diverticulosis,colon adenoma and kidney stones who presented with right lower quadrant pain and fever. CT can of abdomen demonstrated acute appendicitis. 1) NPO for OR today with Dr Medrano 2) Continue with IVF NS at 60cc/hr 3) Tylenol IV for pain and fever 4) Morphine IV for severe pain as needed 5) IV ABX per medicine. Evaluation and plan discussed with Dr Medrano. Code(s): K37 - UNSPECIFIED APPENDICITIS (2) Right lower quadrant pain Code(s): R10.31 - RIGHT LOWER QUADRANT PAIN
[2019-10-30 07:55] LABS: HEMATOCRIT 38.2 % (32.4-45.2); HEMOGLOBIN 12.6 GM/dl (10.7-15.3); MCH 32.1 pg (25.7-33.7); MEAN CELL VOLUME 97.3 fl (80-96); MEAN PLT VOLUME 9.4 fl (7.5-11.1); PLATELET COUNT 117 K/MM3 (134-434); RBC 3.93 M/mm3 (3.60-5.2); RDW 12.4 % (11.6-15.6); WHITE BLOOD COUNT 6.7 K/mm3 (4.0-10.8)
[2019-10-30] MEDS ORDERED: DEXTROSE 5%-0.45% SALINE 1,000 ML IV SCH (08:00)
[2019-10-30 08:09] LABS: CALCIUM 7.7 mg/dl (8.5-10); CREATININE 0.9 mg/dl (0.55-1.3); MAGNESIUM 1.7 mg/dL (1.8-2.4); POTASSIUM 3.8 mmol/L (3.5-5.1)
[2019-10-30 08:34] LABS: INR 1.35 (0.82-1.09)
[2019-10-30] MEDS ORDERED: MAGNESIUM SULF 50% (8.12 MEQ/2 ML-1 GM VIAL) IVPB ONE (08:54)
[2019-10-30] MEDS ORDERED: MAGNESIUM 1GM/D5W - 1 GM/100 ML IVPB IVPB ONE (09:15)
[2019-10-30] MEDS: KCL 10 MEQ IVPB 10 MEQ/100 ML INFUS.BAG IVPB SCH ×2 (09:27→10:47)
--- NOTE | 2019-10-30 09:49 | PN ---
Physical Exam: SUBJECTIVE: Patient seen and examined at bedside. Scheduled for OR today. Pain is well-managed. No nausea or vomiting today. PCP: Dr. Stanton OBJECTIVE: Vital Signs Period Temp Pulse Resp BP Sys/Joyce Pulse Ox Last 24 Hr 98.6 F-101 F 85-112 16-18 105-151/61-83 97-100 GENERAL: The patient is awake, alert, and fully oriented, in no acute distress. LUNGS: Breath sounds equal, clear to auscultation bilaterally, no wheezes, no crackles, no accessory muscle use. HEART: Regular rate and rhythm, S1, S2 ABDOMEN: Soft, RLQ tenderness, EXTREMITIES: 2+ pulses, warm, well-perfused, no edema. NEUROLOGICAL: Cranial nerves II through XII grossly intact. Normal speech, gait not observed. PSYCH: Normal mood, normal affect. SKIN: Warm, dry, normal turgor Laboratory Results - last 24 hr 10/29/19 10/29/19 10/29/19 17:58 17:58 17:58 WBC 6.7 RBC 4.08 Hgb 12.9 Hct 39.0 MCV 95.7 MCH 31.6 MCHC 33.0 RDW 12.2 Plt Count 132 L MPV 9.5 Absolute Neuts (auto) 5.8 Neutrophils % 86.7 H Lymphocytes % 6.0 L Monocytes % 7.0 Eosinophils % 0.1 Basophils % 0.2 PT with INR INR Sodium 135 L Potassium 3.8 Chloride 100 Carbon Dioxide 27 Anion Gap 8 BUN 17.0 Creatinine 1.0 Est GFR (CKD-EPI)AfAm 66.57 Est GFR (CKD-EPI)NonAf 57.44 Random Glucose 119 H Calcium 8.3 L Magnesium Total Bilirubin 0.8 AST 29 ALT 31 Alkaline Phosphatase 61 Total Protein 6.4 Albumin 3.5 Urine Color Yellow Urine Appearance Clear Urine pH 7.0 Urine Protein 2+ H Urine Glucose (UA) Negative Urine Ketones 2+ H Urine Blood 1+ H Urine Nitrite Negative Urine Bilirubin 1+ H Urine Urobilinogen 1.0 Ur Leukocyte Esterase Negative Urine RBC 5-10 Urine WBC 0-2 Ur Transition Epith Cell Few 10/30/19 10/30/19 10/30/19 07:00 07:00 07:00 WBC 6.7 RBC 3.93 Hgb 12.6 Hct 38.2 MCV 97.3 H MCH 32.1 MCHC 33.0 RDW 12.4 Plt Count 117 L MPV 9.4 Absolute Neuts (auto) Neutrophils % Lymphocytes % Monocytes % Eosinophils % Basophils % PT with INR 15.0 H INR 1.35 H Sodium 137 Potassium 3.8 Chloride 104 Carbon Dioxide 25 Anion Gap 8 BUN 11.0 Creatinine 0.9 Est GFR (CKD-EPI)AfAm 75.61 Est GFR (CKD-EPI)NonAf 65.24 Random Glucose 97 Calcium 7.7 L Magnesium 1.7 L Total Bilirubin AST ALT Alkaline Phosphatase Total Protein Albumin Urine Color Urine Appearance Urine pH Urine Protein Urine Glucose (UA) Urine Ketones Urine Blood Urine Nitrite Urine Bilirubin Urine Urobilinogen Ur Leukocyte Esterase Urine RBC Urine WBC Ur Transition Epith Cell Active Medications Generic Name Dose Route Start Last Admin Trade Name Freq PRN Reason Stop Dose Admin Acetaminophen 1,000 mg 10/29/19 23:53 Ofirmev Injection - IVPB ONCE PRN FEVER Dextrose/Sodium Chloride 1,000 mls @ 100 mls/hr 10/30/19 08:00 10/30/19 08:30 D5-1/2ns - IV 100 mls/hr ASDIR ONEYDA Administration Potassium Chloride 10 meq in 100 mls @ 100 mls/hr 10/30/19 09:15 10/30/19 09: 27 Potassium Chloride 10 Meq Premix Ivpb - IVPB 10/30/19 11:14 100 mls/hr Q60M ONEYDA Administration Magnesium Sulfate/Dextrose 1 gm in 100 mls @ 100 mls/hr 10/30/19 09:15 09:28 Magnesium 1gm/D5w - IVPB 10/30/19 10:14 100 mls/hr ONCE ONE Administration Morphine Sulfate 2 mg 10/29/19 21:58 10/30/19 03:42 Morphine Sulfate IVPUSH 2 mg Q6H PRN Administration PAIN LEVEL 7 - 10 ASSESSMENT/PLAN 69 year-old female with a PMH significant for diverticulosis, colon adenoma, and kidney stones, admitted for acute appendicitis. Acute appendicitis --to OR today --continue empiric antibiotics --IV fluids --NPO --IV Tylenol, morphine PRN --ID following FEN Fluids: D51/2NS@125mL/hr Electrolytes: replete as indicated Nutrition: NPO DVT propylaxis: SCDs, oob, ambulation Physical therapy Dispo: continues to require inpatient care. Full code. Visit type - Emergency Visit Emergency Visit: Yes Care time: The patient presented to the Emergency Department on the above date and was hospitalized for further evaluation of their emergent condition. - New Patient This patient is new to me today: Yes Date on this admission: 10/30/19 - Critical Care Critical Care patient: No
[2019-10-30] MEDS ORDERED: PROPOFOL 20 ML ONE (11:57)
[2019-10-30] MEDS ORDERED: ROCURONIUM BROMIDE 50 MG/5 ML SYRINGE ONE (11:57)
[2019-10-30] MEDS ORDERED: LIDOCAINE HCL/PF 2% SDV 5ML VIAL ONE (11:58)
[2019-10-30] MEDS ORDERED: MIDAZOLAM HCL 2 MG/2 ML SINGLE DOSE VIAL ONE (11:58)
[2019-10-30] MEDS ORDERED: KETOROLAC TROMETHAMINE 30 MG/1 ML VIAL ONE (11:58)
[2019-10-30] MEDS ORDERED: ONDANSETRON 4 MG/2 ML VIAL ONE ×2 (11:58→14:43)
[2019-10-30] MEDS ORDERED: BUPIVACAINE HCL 0.25% 125 MG/50 ML VIAL ONE (12:06)
[2019-10-30] MEDS ORDERED: BUPIVACAINE HCL/PF 0.5% (5MG/ML) 10 ML VIAL ONE (12:06)
[2019-10-30] MEDS ORDERED: fentaNYL CITRATE 250 MCG/5 ML VIAL ONE (12:41)
[2019-10-30] MEDS ORDERED: SODIUM CHLORIDE 0.9% P/F 10 ML VIAL IJ ONE (13:08)
[2019-10-30] MEDS ORDERED: PHENYLEPHRINE HCL 10 MG/1 ML SINGLE DOSE VIAL ONE (13:08)
[2019-10-30] MEDS ORDERED: NEOSTIGMINE METHYLSULFATE 0.5 MG/ML - 10 ML MDV ONE (13:48)
[2019-10-30] MEDS ORDERED: BUPIVACAINE HCL/PF 0.5% (5MG/ML) 10 ML VIAL IJ ONE (14:00)
--- NOTE | 2019-10-30 14:33 | OP ---
Operative Note - Note: Operative Date: 10/30/19 Pre-Operative Diagnosis: acute appndicitis Operation: laparoscopic appendectomy Findings: gangrenous retrocecal appendicitis Post-Operative Diagnosis: Other (ganrenous retrocecal appendicitis) Surgeon: Gray Medrano Carton Liner: Kelly Adams Anesthesia: General Specimens Removed: appendix Estimated Blood Loss (mls): 20 Drains & Tubes with Location: 10 mm SHAQUILLE
[2019-10-30] MEDS ORDERED: oxyCODONE HCL 5 MG TABLET PO PRN ×2 (14:39)
[2019-10-30] MEDS: ONDANSETRON 4 MG/2 ML VIAL IVPUSH PRN (14:45)
--- NOTE | 2019-10-30 14:46 | SURG ---
Surgery Ceramics Artist Note Ceramics Artist: Kelly Adams PA-C Date of Service: 10/30/19 Diagnosis: acute appndicitis Procedure: laparoscopic appendectomy I was present for the entirety of the operative procedure. For further detail, please refer to operative report. Visit type - Case Type Case Type: ED Admission - Emergency Emergency Visit: Yes Care time: The patient presented to the Emergency Department on the above date and was hospitalized for further evaluation of their emergent condition. - New patient This patient is new to me today: Yes Date on this admission: 10/30/19
[2019-10-30] MEDS ORDERED: PROMETHAZINE HCL 25 MG/1 ML VIAL IVPUSH ONE (14:59)
[2019-10-30] MEDS: DEXTROSE 5%-0.45% SALINE 1,000 ML IV SCH (16:00)
[2019-10-30] MEDS ORDERED: PT OWN MED DRAWER 7, Y5N ONE (17:09)
[2019-10-30] MEDS: morphine CARPU-JECT 2 MG/1 ML DISP.SYRIN IVPUSH PRN (19:05)
[2019-10-30] MEDS: FAMOTIDINE 20 MG/50 ML IVPB 20 MG/50 ML MG IVPB SCH (22:53)
[2019-10-31] MEDS: morphine CARPU-JECT 2 MG/1 ML DISP.SYRIN IVPUSH PRN (02:52)
[2019-10-31] MEDS ORDERED: PT OWN MED DRAWER 7, Y5N ONE ×3 (04:58→17:00)
--- NOTE | 2019-10-31 07:47 | PN ---
Physical Exam: SUBJECTIVE: Patient seen and examined OBJECTIVE: Vital Signs Period Temp Pulse Resp BP Sys/Joyce Pulse Ox Last 24 Hr 97.7 F-100.6 F 88-110 16-18 85-146/47-70 95-97 GENERAL: The patient is awake, alert, and fully oriented, in no acute distress. LUNGS: Breath sounds equal, clear to auscultation bilaterally, no wheezes, no crackles, no accessory muscle use. HEART: Regular rate and rhythm, S1, S2 ABDOMEN: Soft, RLQ tenderness, EXTREMITIES: 2+ pulses, warm, well-perfused, no edema. NEUROLOGICAL: Cranial nerves II through XII grossly intact. Normal speech, gait not observed. PSYCH: Normal mood, normal affect. SKIN: Warm, dry, normal turgor Laboratory Results - last 24 hr 10/30/19 10/30/19 10/30/19 07:00 07:00 07:00 WBC 6.7 RBC 3.93 Hgb 12.6 Hct 38.2 MCV 97.3 H MCH 32.1 MCHC 33.0 RDW 12.4 Plt Count 117 L MPV 9.4 PT with INR 15.0 H INR 1.35 H Sodium 137 Potassium 3.8 Chloride 104 Carbon Dioxide 25 Anion Gap 8 BUN 11.0 Creatinine 0.9 Est GFR (CKD-EPI)AfAm 75.61 Est GFR (CKD-EPI)NonAf 65.24 Random Glucose 97 Calcium 7.7 L Magnesium 1.7 L Blood Type Antibody Screen 10/30/19 10/30/19 07:00 07:00 WBC RBC Hgb Hct MCV MCH MCHC RDW Plt Count MPV PT with INR INR Sodium Potassium Chloride Carbon Dioxide Anion Gap BUN Creatinine Est GFR (CKD-EPI)AfAm Est GFR (CKD-EPI)NonAf Random Glucose Calcium Magnesium Blood Type O POSITIVE O POSITIVE Antibody Screen Negative Active Medications Generic Name Dose Route Start Last Admin Trade Name Freq PRN Reason Stop Dose Admin Acetaminophen 1,000 mg 10/29/19 23:53 10/31/19 06:23 Ofirmev Injection - IVPB 1,000 mg ONCE PRN Administration FEVER Acetaminophen 650 mg 10/30/19 14:40 Tylenol - PO Q6H PRN FEVER Fentanyl 50 mcg 10/30/19 14:42 Sublimaze Injection - IVPUSH [id number] PRN PAIN-PACU ORDER X 4 DOSES ONLY Metronidazole 250 mg in 50 mls @ 50 mls/hr 10/30/19 10:00 10/31/19 02:00 Flagyl 250mg Premixed Ivpb - IVPB 50 mls/hr Q8H-IV ONEYDA Administration Levofloxacin 750 mg in 150 mls @ 100 mls/hr 10/30/19 22:00 10/30/19 22:53 Levaquin 750 Mg Premixed Ivpb - IVPB 100 mls/hr HS ONEYDA Administration Protocol Dextrose/Sodium Chloride 1,000 mls @ 125 mls/hr 10/30/19 14:41 10/30/19 16:00 D5-1/2ns - IV 125 mls/hr ASDIR ONEYDA Administration Famotidine/Sodium Chloride 20 mg in 50 mls @ 100 mls/hr 10/30/19 22:00 22:53 Pepcid 20 Mg Premixed Ivpb - IVPB 100 mls/hr BID ONEYDA Administration Morphine Sulfate 2 mg 10/30/19 14:42 10/31/19 02:52 Morphine Injection - IVPUSH 2 mg Q6H PRN Administration breakthrough pain Ondansetron HCl 4 mg 10/30/19 14:53 10/30/19 14:45 Zofran Injection IVPUSH 4 mg Q6H PRN Administration NAUSEA AND/OR VOMITING Oxycodone HCl 5 mg 10/30/19 14:39 Roxicodone - PO Q4H PRN PAIN LEVEL 1-5 Oxycodone HCl 10 mg 10/30/19 14:39 Roxicodone - PO Q4H PRN PAIN LEVEL 6-10 ASSESSMENT/PLAN: 69 year-old female with a PMH significant for diverticulosis, colon adenoma, and kidney stones, admitted for acute appendicitis. Gangrenous retrocecal appendicitis s/p lap appendectomy --POD#1 --continue levofloxacin (day #2) and metronidazole (day #2) --start diet --IV Tylenol, morphine PRN --ID following Hypomagnesemia --replete FEN Fluids: PO intake adequate Electrolytes: replete as indicated Nutrition: regular DVT propylaxis: SCDs, oob, ambulation Physical therapy Dispo: continues to require inpatient care. Full code. Visit type - Emergency Visit Emergency Visit: Yes ED Registration Date: 10/30/19 Care time: The patient presented to the Emergency Department on the above date and was hospitalized for further evaluation of their emergent condition. - New Patient This patient is new to me today: No - Critical Care Critical Care patient: No
--- NOTE | 2019-10-31 08:04 | PN ---
Progress Note (short form) - Note Progress Note: GENERAL SURGERY POD #1 s/p Laparoscopic appendectomy (gangrenous; retrocecal) No acute events per RN notes. Alert. Shes OOB and ambulating to bathroom unassisted. Voiding spontaneously. C/o mild incisional tenderness. Adequate pain control. Febrile this morning 100.6 F Using her incentive spirometer as directed. Denies n/v/f/c, CP, palpitations, SOB or MCGUIRE. Last Vital Signs Temp Pulse Resp BP Pulse Ox 100.6 F H 104 H 18 85/49 L 95 12// 06:00 /09/09 06:00 /09/09 06:00 10/31/19 06:00 10/31/19 06:00 Output since surgery //10/30/19 10/31/19 18:22 22:53 06:00 LLQ SHAQUILLE (serous) 90 80 40 Gen: nad ABD: all surgical ports c/d/i LE: SCDs bilat. Compartments soft/nt Problem List - Problems (1) Appendicitis Assessment/Plan: POD #1 s/p Lap appendectomy (gangrenous; retrocecal) Regular diet Cont OOB and ambulate f/u ID consult f/u Labs Incentive spirometer Tylenol for fever > 100.4 F Monitor record SHAQUILLE output q shift, most likely will dc in AM DC planning Code(s): K37 - UNSPECIFIED APPENDICITIS
[2019-10-31 08:11] LABS: BASO % 0.1 % (0-2.0); HEMATOCRIT 32.5 % (32.4-45.2); HEMOGLOBIN 10.9 GM/dl (10.7-15.3); LYMPH % 6.9 % (8-40); MCH 32.2 pg (25.7-33.7); MCHC 33.4 g/dl (32.0-36.0); MEAN CELL VOLUME 96.6 fl (80-96); MEAN PLT VOLUME 9.6 fl (7.5-11.1); MONO % 8.9 % (3.8-10.2); NEUT % 84.1 % (42.8-82.8); PLATELET COUNT 96 K/MM3 (134-434); RBC 3.37 M/mm3 (3.60-5.2); RDW 11.8 % (11.6-15.6); WHITE BLOOD COUNT 5.2 K/mm3 (4.0-10.8)
[2019-10-31 09:08] LABS: ALBUMIN 2.3 g/dl (3.4-5.0); BILIRUBIN,TOTAL 0.8 mg/dl (0.2-1); MAGNESIUM 1.6 mg/dL (1.8-2.4); TOT PROT 4.5 g/dl (6.4-8.2)
[2019-10-31 09:21] LABS: CALCIUM 6.8 mg/dl (8.5-10)
[2019-10-31] MEDS ORDERED: MAGNESIUM SULF 50% (8.12 MEQ/2 ML-1 GM VIAL) IVPB ONE (09:24)
[2019-10-31] MEDS ORDERED: MAGNESIUM SULFATE IN WATER 2 GM/50 ML IVPB IVPB ONE (09:45)
[2019-10-31] MEDS ORDERED: [UNRECOGNIZED DRUG - OTHER] PO SCH (10:00)
[2019-10-31] MEDS ORDERED: FOLIC ACID PO SCH (10:00)
[2019-10-31] MEDS ORDERED: BIFIDOBACTERIUM INFANTIS 10.5 MG PO SCH (10:00)
[2019-10-31] MEDS ORDERED: MULTIVIT MIN PO SCH (10:00)
[2019-10-31] MEDS: FAMOTIDINE 20 MG/50 ML IVPB 20 MG/50 ML MG IVPB SCH (10:25)
--- NOTE | 2019-10-31 10:58 | PN ---
Progress Note (short form) - Note Progress Note: ID CONSULT DICTATED POD#1 LAP APPENDECTOMY PCN ALLERGY CONTINUE EMPIRIC LEVAQUIN/ FLAGYL
--- NOTE | 2019-10-31 13:00 | OP ---
DATE OF OPERATION: 10/30/2019 PREOPERATIVE DIAGNOSIS: Acute appendicitis. POSTOPERATIVE DIAGNOSIS: Gangrenous appendicitis. PROCEDURE: Laparoscopic appendectomy. SURGEON: Gray Medrano MD BUSINESS DEVELOPMENT PROFESSIONAL: Kelly Adams PA-C ANESTHESIA: General. OPERATIVE FINDINGS: There was a gangrenous (perforated) appendicitis, and the appendix was retrocecal in location. There were fecaliths present. The rest of the findings were unremarkable. DESCRIPTION OF PROCEDURE: The patient was placed on the operating room in supine position. After the induction of general anesthesia and placement of a Meek catheter and sequential compression devices on the patient's lower extremities, the abdomen was prepped with ChloraPrep and draped in sterile fashion. Time-out was taken and pneumoperitoneum established above the umbilicus using a Veress needle to an intra-abdominal pressure of 15 mmHg. An additional left lower quadrant 5-mm port was placed and a 12-mm suprapubic port just to the left of the midline. Laparoscopy was carried out, and the previously noted findings were observed. The cecum was grasped and the base of the appendix identified at the confluence of the taenia on the cecum and a window made in the mesoappendix. Using blunt dissection, the mesoappendix was then serially divided for several centimeters, and because of the retrocecal nature of the appendix, an Endo JAVON stapling device was next introduced with purple load and fired across the appendix. There was no evidence of bleeding from the appendiceal stump. Next, using blunt dissection and a LigaSure, the remaining mesoappendix was serially divided until the tip of the appendix was reached. The appendix and the fecaliths were placed in an EndoCatch and brought out through the suprapubic port and pneumoperitoneum re-established. Copious irrigation was carried out until the return was clear and hemostasis was again verified. A 10-mm Darnell-Castro drain was placed in the right lower quadrant and brought out through the left lower quadrant 5-mm port site where the drain was secured to the skin with 2-0 silk suture. Again, hemostasis was verified and all ports were removed under laparoscopic vision without evidence of bleeding from the port sites. The pneumoperitoneum was evacuated and the defect in the fascia at the suprapubic port was closed with a single [id number] 0 Vicryl suture. All port sites were infiltrated with 0.5% Marcaine and the skin edges reapproximated with 4-0 Monocryl in a subcuticular continuous fashion. Steri-Strips and Band-Aid dressings were placed and a Biopatch placed around the drain exit site and the drain connected to bulb self-suction and the procedure terminated at this point. The patient aroused from general anesthesia and transferred to the post anesthesia care unit in stable condition awake and alert. ESTIMATED BLOOD LOSS: 25 mL. REPLACEMENTS: Crystalloid. DRAINS: One 10-mm Darnell-Castro. SPECIMEN: Appendix to Pathology. I, Gray Medrano MD, was physically present in the operating room from the time the patient was placed on the operating room table until she was transferred to the post anesthesia care unit in [employer] company. Gray Medrano MD [id number] MTDD
--- NOTE | 2019-10-31 16:21 | EKG ---
Test Reason : Blood Pressure : / mmHG Vent. Rate : 083 BPM Atrial Rate : 083 BPM P-R Int : 148 ms QRS Dur : 064 ms QT Int : 366 ms P-R-T Axes : 063 041 048 degrees QTc Int : 430 ms NORMAL SINUS RHYTHM NORMAL ECG WHEN COMPARED WITH ECG OF 29-JUN-2019 12:05, NO SIGNIFICANT CHANGE WAS FOUND Confirmed by MD Farida, Greg ([id number]) on 10/31/2019 4:21:03 PM Referred By: DR CARABALLO Confirmed By:Greg Iqbal MD
[2019-10-31] MEDS: ACETAMINOPHEN 325 MG TABLET (FP) PO PRN (17:26)
[2019-11-01] MEDS: ONDANSETRON 4 MG/2 ML VIAL IVPUSH PRN ×2 (01:13→05:35)
[2019-11-01] MEDS ORDERED: PT OWN MED DRAWER 7, Y5N ONE ×3 (01:18→18:07)
[2019-11-01 09:26] LABS: HEMATOCRIT 33.6 % (32.4-45.2); HEMOGLOBIN 11.2 GM/dl (10.7-15.3); MCH 31.7 pg (25.7-33.7); MCHC 33.3 g/dl (32.0-36.0); MEAN CELL VOLUME 95.2 fl (80-96); MEAN PLT VOLUME 9.3 fl (7.5-11.1); PLATELET COUNT 105 K/MM3 (134-434); RBC 3.53 M/mm3 (3.60-5.2)
[2019-11-01 09:35] LABS: CALCIUM 7.3 mg/dl (8.5-10); CREATININE 0.9 mg/dl (0.55-1.3); POTASSIUM 3.6 mmol/L (3.5-5.1)
[2019-11-01 10:35] LABS: PLATELET ESTIMATE DECREASED
--- NOTE | 2019-11-01 11:40 | PN ---
Progress Note (short form) - Note Progress Note: SURGERY 69yo F s/p lap appy POD 2. Pt seen and examined at bedside. Pt states that her abd pain is controlled, but has been complaining of nausea no vomiting. Pt spike a temp of 100.5 yesterday, since then afebrile. Pt tolerating diet and ambulating well. CBC, BMP 11/01/19 09:16 11/01/19 09:16 Vital Signs Temp 98.6 F 11/01/19 10:00 Pulse 89 11/01/19 10:00 Resp 18 11/01/19 10:00 BP 90/57 L 11/01/19 10:00 Pulse Ox 98 11/01/19 10:00 Intake & Output 10/31/19 10/31/19 11/01/19 11:59 23:59 11:59 Intake Total 1500 800 110 Output Total 40 110 120 Balance 1460 690 -10 Weight 138 lb 0.1 oz Intake: IV 1400 D5-1/2Ns - 1,000 ml @ 125 1400 mls/hr IV ASDIR ONEYDA Rx#: [id number] IVPB 100 160 110 Oral 640 Output: Drainage 40 110 20 Right Lower Flank 40 110 20 Emesis 100 Other: Voiding Method Toilet Toilet Toilet # Unmeasured Voids Void 3 1 2 Bowel Movement Yes: diarrhea No # Bowel Movements 2 Weight Measurement Method Standing Scale PE: Gen: A&O X3 Resp: breathing comfortably Abd: soft, nontender, mild distension, drain in place with serosanguinous drainage. Ext: no edema Problem List - Problems (1) Appendicitis Assessment/Plan: Plan -will keep drain in place for now, possibly remove late afternoon or tomorrow morning. -abx as per Med/ID -regular diet -will add reglan for nausea -will continue to monitor today for fevers, if afebrile pt should be ok for discharge either tonight or tomorrow. Pt discussed with Dr. Medrano who agrees with plan Code(s): K37 - UNSPECIFIED APPENDICITIS Qualifiers: Appendicitis type: acute appendicitis Appendicitis gangrene presence: with gangrene
--- NOTE | 2019-11-01 15:11 | PATH ---
Surgical Pathology Report Patient Name: YI GARCIA Med. Rec. #: [id number] /Age/Gender: 1950 (Age: 69) / F Account: [id number] Location: [facility] MED-SURG Taken: 10/30/2019 Received: 10/30/2019 Reported: 11/01/2019 Physicians: MD Jessa Rosenberg, OCTAVIA Specimen(s) Received APPENDIX Clinical History Acute appendicitis Final Diagnosis APPENDIX, APPENDECTOMY: ACUTE NECROTIZING (GANGRENOUS) APPENDICITIS AND PERIAPPENDICITIS. Electronically Signed Kelly Forte M.D. Gross Description Received in formalin labeled "appendix," are 2 markedly fragmented portions of appendix measuring 2.5 and 3.0 cm in length. The shorter portion displays an attached staple line. The outer surfaces are chauhan-huerta, markedly fragmented and disrupted with attached exudate. Sectioning reveals necrotic appearing appendiceal parenchyma. The wall of the appendix averages 0.1 cm in thickness. Cement Mason sections are submitted in one cassette. /10/31/2019 saudi10/31/2019
--- NOTE | 2019-11-01 15:17 | CONS ---
INFECTIOUS DISEASE CONSULTATION DATE OF CONSULTATION: DATE OF DICTATION: 11/01/2019 HISTORY OF PRESENT ILLNESS: The patient is a 69-year-old, female who is evaluated for appendicitis. She presented to the hospital on October 29, 2019, with a 1-day history of worsening right lower quadrant abdominal pain. She was noted to be febrile in the emergency room to 101. CAT scan of the abdomen and pelvis was consistent with acute appendicitis. She was taken to the operating room on October 30, 2019, where a laparoscopic appendectomy was performed. She was found to have a gangrenous, retrocecal appendix. She was empirically treated with Levaquin and Flagyl. At the present time, she is awake and alert. She complains of abdominal distention and gas. She denies any abdominal pain. She reports passing flatus; however, has not had a bowel movement. No reports of nausea or vomiting. Her course complicated by low-grade fever. PAST MEDICAL HISTORY: Positive for diverticulosis and nephrolithiasis. ALLERGIES: PENICILLIN, SULFA, AND ERYTHROMYCIN. Patient reports nausea with PENICILLIN and SULFA. No history of rash or anaphylaxis. MEDICATIONS: Include Levaquin, Flagyl, Tylenol. SOCIAL HISTORY: She resides at home in the community. She is a nonsmoker, nondrinker. SYSTEMS REVIEW: Neurologic: No loss of consciousness, seizure activity, focal weakness. Cardiac: Negative chest pain or palpitations. Respiratory: Negative cough or sputum production. Gastrointestinal: As per HPI. Genitourinary: Negative for urinary tract infection. LABORATORY DATA: White count 5.2, hematocrit 37.5, platelets 96,000. Creatinine 1.0. PHYSICAL EXAMINATION: General: On exam, she is awake and alert. She is not acutely toxic appearing. Vital Signs: Temperature 98.6, T-maximum 100.5, blood pressure 121/86, pulse 87 regular, respirations 20 per minute. Eyes: Sclerae are anicteric. Heart: Heart sounds S1, S2. Lungs: Clear. Abdomen: Slightly distended, tympanitic. Mild diffuse tenderness. Laparoscopic wounds without evidence of infection. Extremities: Negative for edema. Negative Homans sign. IMPRESSION: 1. Postoperative day number 1 laparoscopic appendectomy. 2. Multiple antibiotic allergies. Continue empiric antibiotic coverage of intra-abdominal pathogens in this PENICILLIN-allergic patient with Levaquin and Flagyl. Will follow. Thank you for the kind referral. JORDI REYES M.D. [id number]
[2019-11-01] MEDS: ACETAMINOPHEN 325 MG TABLET (FP) PO PRN (15:55)
[2019-11-01] MEDS: DEXTROSE 5%-0.45% SALINE 1,000 ML IV SCH ×2 (17:47→17:48)
--- NOTE | 2019-11-01 23:26 | PN ---
Progress Note, Physician History of Present Illness: C/O ABDOMINAL DISTENTION, NAUSEA, BLOATING NO C/O ABDOMINAL PAIN LOW GRADE TEMP NOTED - Current Medication List Current Medications: Active Medications Acetaminophen (Ofirmev Injection -) 1,000 mg IVPB ONCE PRN PRN Reason: FEVER Last Admin: 10/31/19 06:23 Dose: 1,000 mg Acetaminophen (Tylenol -) 650 mg PO Q6H PRN PRN Reason: FEVER Last Admin: 11/01/19 15:55 Dose: 650 mg Metronidazole (Flagyl 250mg Premixed Ivpb -) 250 mg in 50 mls @ 50 mls/hr IVPB Q8H-IV ONEYDA Last Admin: 11/01/19 18:21 Dose: 50 mls/hr Levofloxacin (Levaquin 750 Mg Premixed Ivpb -) 750 mg in 150 mls @ 100 mls/hr IVPB HS ONEYDA; Protocol Last Admin: 11/01/19 22:06 Dose: 100 mls/hr Dextrose/Sodium Chloride (D5-1/2ns -) 1,000 mls @ 125 mls/hr IV ASDIR ONEYDA Last Admin: 11/01/19 17:48 Dose: Not Given Metoclopramide HCl (Reglan Injection -) 10 mg IVPUSH Q6H PRN PRN Reason: NAUSEA Ondansetron HCl (Zofran Injection) 4 mg IVPUSH Q6H PRN PRN Reason: NAUSEA AND/OR VOMITING Last Admin: 11/01/19 05:35 Dose: 4 mg - Objective Vital Signs: Vital Signs Temperature 99.6 F 11/01/19 19:00 Pulse Rate 71 11/01/19 19:00 Respiratory Rate 18 11/01/19 19:00 Blood Pressure 108/63 11/01/19 19:00 O2 Sat by Pulse Oximetry (%) 96 11/01/19 19:00 Constitutional: Yes: No Distress Eyes: Yes: Conjunctiva Clear Cardiovascular: Yes: Regular Rate and Rhythm, S1, S2 Respiratory: Yes: CTA Bilaterally Gastrointestinal: Yes: Normal Bowel Sounds, Soft, Other (NON TENDER SHAQUILLE DRAIN WITH SEROSANGUINOUS FLUID) Edema: No Labs: CBC, BMP 11/01/19 09:16 11/01/19 09:16 INR, PTT INR 1.35 (0.82-1.09) H 12/09/19 07:00 Assessment/Plan POD# 2 LAPAROSCOPIC APPENDECTOMY ANTIBIOTIC ALLERGIES CONTINUE LEVAQUIN/FLAGYL; SWITCH TO PO WHEN CLEARED FOR DISCHARGE BY SURGERY
--- NOTE | 2019-11-01 23:29 | PN ---
Physical Exam: SUBJECTIVE: Patient seen and examined at bedside. OBJECTIVE: Vital Signs Period Temp Pulse Resp BP Sys/Joyce Pulse Ox Last 24 Hr 98.4 F-99.6 F 71-95 18-18 90-108/57-73 96-98 GENERAL: The patient is awake, alert, and fully oriented, in no acute distress. LUNGS: Breath sounds equal, clear to auscultation bilaterally, no wheezes, no crackles, no accessory muscle use. HEART: Regular rate and rhythm, S1, S2 ABDOMEN: Soft, RLQ tenderness, EXTREMITIES: 2+ pulses, warm, well-perfused, no edema. NEUROLOGICAL: Cranial nerves II through XII grossly intact. Normal speech, gait not observed. PSYCH: Normal mood, normal affect. SKIN: Warm, dry, normal turgor Laboratory Results - last 24 hr 11/01/19 11/01/19 09:16 09:16 WBC 6.0 RBC 3.53 L Hgb 11.2 Hct 33.6 MCV 95.2 MCH 31.7 MCHC 33.3 RDW 12.0 Plt Count 105 L MPV 9.3 Absolute Neuts (auto) 5.4 Neutrophils % No Result Required. Neutrophils % (Manual) 92.0 H* Lymphocytes % No Result Required. Lymphocytes % (Manual) 5.0 L Monocytes % (Manual) 3 L Hypochromia 1+ Platelet Estimate Decreased Sodium 129 L Potassium 3.6 Chloride 101 Carbon Dioxide 24 Anion Gap 4 L BUN 13.0 Creatinine 0.9 Est GFR (CKD-EPI)AfAm 75.61 Est GFR (CKD-EPI)NonAf 65.24 Random Glucose 145 H Calcium 7.3 L Active Medications Generic Name Dose Route Start Last Admin Trade Name Freq PRN Reason Stop Dose Admin Acetaminophen 1,000 mg 10/29/19 23:53 10/31/19 06:23 Ofirmev Injection - IVPB 1,000 mg ONCE PRN Administration FEVER Acetaminophen 650 mg 10/30/19 14:40 11/01/19 15:55 Tylenol - PO 650 mg Q6H PRN Administration FEVER Metronidazole 250 mg in 50 mls @ 50 mls/hr 10/30/19 10:00 11/01/19 18:21 Flagyl 250mg Premixed Ivpb - IVPB 50 mls/hr Q8H-IV ONEYDA Administration Levofloxacin 750 mg in 150 mls @ 100 mls/hr 10/30/19 22:00 11/01/19 22:06 Levaquin 750 Mg Premixed Ivpb - IVPB 100 mls/hr HS ONEYDA Administration Protocol Dextrose/Sodium Chloride 1,000 mls @ 125 mls/hr 10/30/19 14:41 11/01/19 17:48 D5-1/2ns - IV Not Given ASDIR ONEYDA Metoclopramide HCl 10 mg 11/01/19 08:20 Reglan Injection - IVPUSH Q6H PRN NAUSEA Ondansetron HCl 4 mg 10/30/19 14:53 11/01/19 05:35 Zofran Injection IVPUSH 4 mg Q6H PRN Administration NAUSEA AND/OR VOMITING ASSESSMENT/PLAN: 69 year-old female with a PMH significant for diverticulosis, colon adenoma, and kidney stones, admitted for acute appendicitis. Gangrenous retrocecal appendicitis s/p lap appendectomy --POD#2 --continue levofloxacin (day #3) and metronidazole (day 3 Post-op ileus --has been nauseous, no appetite, abdomen feels distended although passing gas, no BM --abd xray shows ileus --NPO FEN Fluids: PO intake adequate Electrolytes: replete as indicated Nutrition: regular DVT propylaxis: SCDs, oob, ambulation Physical therapy Dispo: continues to require inpatient care. Full code. Visit type - Emergency Visit Emergency Visit: Yes ED Registration Date: 10/30/19 Care time: The patient presented to the Emergency Department on the above date and was hospitalized for further evaluation of their emergent condition. - New Patient This patient is new to me today: No - Critical Care Critical Care patient: No
[2019-11-02] MEDS ORDERED: MELATONIN 1 MG TABLET PO ONE (00:32)
[2019-11-02] MEDS ORDERED: PT OWN MED DRAWER 7, Y5N ONE ×3 (02:22→16:57)
[2019-11-02] MEDS: ONDANSETRON 4 MG/2 ML VIAL IVPUSH PRN (04:30)
[2019-11-02] MEDS: METOCLOPRAMIDE HCL INJECTION 10 MG/2 ML VIAL IVPUSH PRN (05:20)
[2019-11-02 10:23] LABS: BASO % 0.5 % (0-2.0); EOS % 0.1 % (0-4.5); HEMATOCRIT 33.5 % (32.4-45.2); HEMOGLOBIN 11.6 GM/dl (10.7-15.3); LYMPH % 6.2 % (8-40); MCH 32.8 pg (25.7-33.7); MCHC 34.7 g/dl (32.0-36.0); MEAN CELL VOLUME 94.6 fl (80-96); MEAN PLT VOLUME 8.9 fl (7.5-11.1); MONO % 6.2 % (3.8-10.2); PLATELET COUNT 135 K/MM3 (134-434); RBC 3.54 M/mm3 (3.60-5.2); WHITE BLOOD COUNT 7.2 K/mm3 (4.0-10.8)
[2019-11-02 10:38] LABS: ALBUMIN 2.2 g/dl (3.4-5.0); BILIRUBIN,TOTAL 0.6 mg/dl (0.2-1); CALCIUM 7.4 mg/dl (8.5-10); CREATININE 0.7 mg/dl (0.55-1.3); MAGNESIUM 1.8 mg/dL (1.8-2.4); POTASSIUM 3.4 mmol/L (3.5-5.1); TOT PROT 4.6 g/dl (6.4-8.2)
--- NOTE | 2019-11-02 11:43 | PN ---
Progress Note (short form) - Note Progress Note: Attending Surgeon POD#3 Some nausea; tolerating regular diet and passing flatus; remains on IVAB's VSS AF abdo-soft and tympanitic but not distended; non tender; port sites c/d/i; SHAQUILLE serous WBC nl AXR_? ileus IMP: stable s/p lap appendectomy for gangrenous appendicitis PLAN: OOB walking; IVF;IVAB's continue drain. Gray Medrano MD FACS
[2019-11-02] MEDS: DEXTROSE 5%-0.45% SALINE 1,000 ML IV SCH (12:12)
--- NOTE | 2019-11-02 16:45 | PN ---
Physical Exam: SUBJECTIVE: Patient seen and examined oob to chair. OBJECTIVE: Vital Signs Period Temp Pulse Resp BP Sys/Joyce Pulse Ox Last 24 Hr 97.9 F-99.6 F 71-96 17-18 96-118/58-69 95-97 GENERAL: The patient is awake, alert, and fully oriented, in no acute distress. LUNGS: Breath sounds equal, clear to auscultation bilaterally, no wheezes, no crackles, no accessory muscle use. HEART: Regular rate and rhythm, S1, S2 ABDOMEN: Surgical ports clean, dry, edges well-approximated NEUROLOGICAL: Cranial nerves II through XII grossly intact. Normal speech, gait not observed. PSYCH: Normal mood, normal affect. SKIN: Warm, dry, normal turgor Laboratory Results - last 24 hr 11/02/19 11/02/19 10:10 10:10 WBC 7.2 RBC 3.54 L Hgb 11.6 Hct 33.5 MCV 94.6 MCH 32.8 MCHC 34.7 RDW 12.0 Plt Count 135 MPV 8.9 Absolute Neuts (auto) 6.4 Neutrophils % 87.0 H Lymphocytes % 6.2 L Monocytes % 6.2 Eosinophils % 0.1 Basophils % 0.5 Sodium 135 L Potassium 3.4 L Chloride 102 Carbon Dioxide 26 Anion Gap 7 L BUN 10.0 Creatinine 0.7 Est GFR (CKD-EPI)AfAm 102.46 Est GFR (CKD-EPI)NonAf 88.40 Random Glucose 134 H Calcium 7.4 L Magnesium 1.8 Total Bilirubin 0.6 AST 20 ALT 16 Alkaline Phosphatase 63 D Total Protein 4.6 L Albumin 2.2 L Active Medications Generic Name Dose Route Start Last Admin Trade Name Freq PRN Reason Stop Dose Admin Acetaminophen 1,000 mg 10/29/19 23:53 10/31/19 06:23 Ofirmev Injection - IVPB 1,000 mg ONCE PRN Administration FEVER Acetaminophen 650 mg 10/30/19 14:40 11/01/19 15:55 Tylenol - PO 650 mg Q6H PRN Administration FEVER Metronidazole 250 mg in 50 mls @ 50 mls/hr 10/30/19 10:00 11/02/19 09:23 Flagyl 250mg Premixed Ivpb - IVPB 50 mls/hr Q8H-IV ONEYDA Administration Levofloxacin 750 mg in 150 mls @ 100 mls/hr 10/30/19 22:00 11/01/19 22:06 Levaquin 750 Mg Premixed Ivpb - IVPB 100 mls/hr HS ONEYDA Administration Protocol Dextrose/Sodium Chloride 1,000 mls @ 125 mls/hr 10/30/19 14:41 11/02/19 12:12 D5-1/2ns - IV 125 mls/hr ASDIR ONEYDA Administration Metoclopramide HCl 10 mg 11/01/19 08:20 11/02/19 05:20 Reglan Injection - IVPUSH 10 mg Q6H PRN Administration NAUSEA Ondansetron HCl 4 mg 10/30/19 14:53 11/02/19 04:30 Zofran Injection IVPUSH 4 mg Q6H PRN Administration NAUSEA AND/OR VOMITING ASSESSMENT/PLAN: 69 year-old female with a PMH significant for diverticulosis, colon adenoma, and kidney stones, admitted for acute appendicitis. Gangrenous retrocecal appendicitis s/p lap appendectomy --POD#3 --continue levofloxacin (day #4) and metronidazole (day 4) --will need ID input for antibiotics on discharge Post-op ileus --improved, passing gas, +BM, tolerating clears --todays xray shows resolving ileus, no evidence of focal obstruction or free air --can be discharged tomorrow from surgical pov FEN Fluids: PO intake adequate Electrolytes: replete as indicated Nutrition: clears DVT propylaxis: SCDs, oob, ambulation Dispo: continues to require inpatient care. Full code. Visit type - Emergency Visit Emergency Visit: Yes ED Registration Date: 10/30/19 Care time: The patient presented to the Emergency Department on the above date and was hospitalized for further evaluation of their emergent condition. - New Patient This patient is new to me today: No - Critical Care Critical Care patient: No
[2019-11-03 08:00] LABS: BASO % 0.1 % (0-2.0); EOS % 0.7 % (0-4.5); HEMATOCRIT 35.5 % (32.4-45.2); HEMOGLOBIN 11.9 GM/dl (10.7-15.3); LYMPH % 9.9 % (8-40); MCH 32.2 pg (25.7-33.7); MCHC 33.7 g/dl (32.0-36.0); MEAN CELL VOLUME 95.5 fl (80-96); MEAN PLT VOLUME 8.6 fl (7.5-11.1); MONO % 9.2 % (3.8-10.2); NEUT % 80.1 % (42.8-82.8); PLATELET COUNT 153 K/MM3 (134-434); RBC 3.71 M/mm3 (3.60-5.2); RDW 12.1 % (11.6-15.6); WHITE BLOOD COUNT 5.9 K/mm3 (4.0-10.8)
[2019-11-03 08:45] LABS: BILIRUBIN,TOTAL 0.5 mg/dl (0.2-1); CALCIUM 7.5 mg/dl (8.5-10); CREATININE 0.8 mg/dl (0.55-1.3); MAGNESIUM 1.7 mg/dL (1.8-2.4); POTASSIUM 3.4 mmol/L (3.5-5.1); TOT PROT 4.6 g/dl (6.4-8.2)
[2019-11-03] MEDS ORDERED: PT OWN MED DRAWER 7, Y5N ONE (10:45)
[2019-11-03] MEDS: ACETAMINOPHEN 325 MG TABLET (FP) PO PRN (15:26)
--- NOTE | 2019-11-03 19:02 | PN ---
Physical Exam: SUBJECTIVE: Patient seen and examined oob to chair. Ambulating in hallway frequently. OBJECTIVE: Vital Signs Period Temp Pulse Resp BP Sys/Jocye Pulse Ox Last 24 Hr 98.1 F-99.6 F 76-92 18-18 107-130/60-70 95-98 GENERAL: The patient is awake, alert, and fully oriented, in no acute distress. LUNGS: Breath sounds equal, clear to auscultation bilaterally, no wheezes, no crackles, no accessory muscle use. HEART: Regular rate and rhythm, S1, S2 ABDOMEN: Surgical ports clean, dry, edges well-approximated NEUROLOGICAL: Cranial nerves II through XII grossly intact. Normal speech, gait not observed. PSYCH: Normal mood, normal affect. SKIN: Warm, dry, normal turgor Laboratory Results - last 24 hr 11/03/19 11/03/19 07:34 07:34 WBC 5.9 RBC 3.71 Hgb 11.9 Hct 35.5 MCV 95.5 MCH 32.2 MCHC 33.7 RDW 12.1 Plt Count 153 MPV 8.6 Absolute Neuts (auto) 4.8 Neutrophils % 80.1 Lymphocytes % 9.9 Monocytes % 9.2 Eosinophils % 0.7 Basophils % 0.1 Sodium 136 Potassium 3.4 L Chloride 102 Carbon Dioxide 27 Anion Gap 7 L BUN 9.0 Creatinine 0.8 Est GFR (CKD-EPI)AfAm 87.18 Est GFR (CKD-EPI)NonAf 75.22 Random Glucose 122 H Calcium 7.5 L Magnesium 1.7 L Total Bilirubin 0.5 AST 30 ALT 17 Alkaline Phosphatase 67 Total Protein 4.6 L Albumin 2.0 L Active Medications Generic Name Dose Route Start Last Admin Trade Name Freq PRN Reason Stop Dose Admin Acetaminophen 1,000 mg 10/29/19 23:53 10/31/19 06:23 Ofirmev Injection - IVPB 1,000 mg ONCE PRN Administration FEVER Acetaminophen 650 mg 10/30/19 14:40 11/03/19 15:26 Tylenol - PO 650 mg Q6H PRN Administration FEVER Metronidazole 250 mg in 50 mls @ 50 mls/hr 10/30/19 10:00 11/03/19 18:20 Flagyl 250mg Premixed Ivpb - IVPB 50 mls/hr Q8H-IV ONEYDA Administration Levofloxacin 750 mg in 150 mls @ 100 mls/hr 10/30/19 22:00 11/02/19 21:38 Levaquin 750 Mg Premixed Ivpb - IVPB 100 mls/hr HS ONEYDA Administration Protocol Dextrose/Sodium Chloride 1,000 mls @ 125 mls/hr 10/30/19 14:41 11/02/19 12:12 D5-1/2ns - IV 125 mls/hr ASDIR ONEYDA Administration Metoclopramide HCl 10 mg 11/01/19 08:20 11/02/19 05:20 Reglan Injection - IVPUSH 10 mg Q6H PRN Administration NAUSEA Ondansetron HCl 4 mg 10/30/19 14:53 11/02/19 04:30 Zofran Injection IVPUSH 4 mg Q6H PRN Administration NAUSEA AND/OR VOMITING ASSESSMENT/PLAN: 69 year-old female with a PMH significant for diverticulosis, colon adenoma, and kidney stones, admitted for acute appendicitis. Gangrenous retrocecal appendicitis s/p lap appendectomy --POD#4 --continue levofloxacin (day #5) and metronidazole (day #%) --will need ID input for antibiotics on discharge Post-op ileus --improved, passing gas, +BM, tolerating clears --todays xray shows resolving ileus, no evidence of focal obstruction or free air --can be discharged tomorrow from surgical pov FEN Fluids: PO intake adequate Electrolytes: replete as indicated Nutrition: clears DVT propylaxis: SCDs, oob, ambulation Dispo: continues to require inpatient care. Full code. Visit type - Emergency Visit Emergency Visit: Yes ED Registration Date: 10/30/19 Care time: The patient presented to the Emergency Department on the above date and was hospitalized for further evaluation of their emergent condition. - New Patient This patient is new to me today: No - Critical Care Critical Care patient: No - Discharge Referral Referred to [facility] No
[2019-11-03] MEDS ORDERED: MAGNESIUM OXIDE 400 MG TABLET (FP) PO ONE (19:05)
[2019-11-03] MEDS: POTASSIUM CHLORIDE TABS 20 MEQ TABLET.ER (FP) PO SCH (20:25)
[2019-11-03] MEDS: METOCLOPRAMIDE HCL INJECTION 10 MG/2 ML VIAL IVPUSH PRN (21:11)
[2019-11-04] MEDS: POTASSIUM CHLORIDE TABS 20 MEQ TABLET.ER (FP) PO SCH (01:30)
[2019-11-04] MEDS ORDERED: PT OWN MED DRAWER 7, Y5N ONE ×2 (05:56→09:15)
[2019-11-04 06:32] VITALS: BP 103/60; PULSE 85; TEMP 98.2
[2019-11-04] MEDS ORDERED: POTASSIUM CHLORIDE ORAL LIQUID 20 MEQ/15 ML PO ONE (09:12)
--- NOTE | 2019-11-04 09:15 | DS ---
Physical Examination Vital Signs: Vital Signs Temperature 98.2 F 11/04/19 06:00 Pulse Rate 85 11/04/19 06:00 Respiratory Rate 18 11/04/19 06:00 Blood Pressure 103/60 11/04/19 06:00 O2 Sat by Pulse Oximetry (%) 95 11/04/19 06:00 Elderly F tolerating PO remained afebrile GENERAL: The patient is awake, alert, and fully oriented, in no acute distress. LUNGS: Breath sounds equal, clear to auscultation bilaterally, no wheezes, no crackles, no accessory muscle use. HEART: Regular rate and rhythm, S1, S2 ABDOMEN: Surgical ports clean, dry, edges well-approximated NEUROLOGICAL: Cranial nerves II through XII grossly intact. Normal speech, gait not observed. PSYCH: Normal mood, normal affect. SKIN: Warm, dry, normal turgor Labs: CBC, BMP 11/03/19 07:34 11/03/19 07:34 CT abd; acute appendicitis Discharge Summary Problems reviewed: Yes Reason For Visit: ACUTE APPENDICITIS Current Active Problems Appendicitis (Acute) Right lower quadrant pain (Acute) Procedures: Principal: Laprpscopic appendectomy Hospital Course: 69 year old female with history of diverticulosis,colon adenoma and kidney stones who presented to the emergency department with 1 day of right lower quadrant abdominal pain, back pain and fever with a severity of 7/10. She reported prior to her pain she had cold like symptoms and 5 episodes of associated diarrhea and 2 episodes of vomiting with a fever of 101. Patient states the pain worsens when she is ambulating and is tender to touch. Upon evaluation in the ER CT can of abdomen demonstrated acute appendicitis. underwent appendectomy on 10/31/2019 subsequently developed post OP Ileus that has relived clered by surgery to DC on PO abx as per ID recommendations. Health Concerns: Infection a, ileus abd pain Goals: Back to base line functioning Condition: Good - Instructions Diet, Activity, Other Instructions: Dr. Medrano's Postoperative Instructions Physical activity Resume your normal everyday activity as tolerated no heavy lifting or exercise until seen by your surgeon. You may walk unlimited amounts of and climb stairs. You may resume driving the car when you feel safe and comfortable behind the wheel. Wound care If you have a bandage, leave it on, and keep dry for 48 - 72 hours. After that time discard the outer bandage. If there are tapes on the skin under the outer bandage, leave them in place. They will peel off in the next 7 to 10 days. Do Not peel them off. You may shower 2 days after surgery. If there are tapes present on the skin, they can get wet. Diet There are no dietary restrictions. Eat healthy, high-fiber foods. Drink 6 to 8 glasses of liquid each day. This will assist in keeping your bowels are regular. Pain management You may take Tylenol or acetaminophen or Ibuprofen (for example, Motrin, Advil etc.) Any pain prescription medication ordered should be taken as prescribed for moderate to severe pain. Call Dr. Medrano for any of the following: Severe pain not relieved by medication Fever of 101 or higher Excessive bleeding or drainage on dressing Inability to urinate Call the office at [phone] for a post operative appointment in 7 - 10 days. Referrals: Gray Medrano MD [Staff Physician] - 1 Week Garth Stanton MD [Primary Care Provider] - 2 Weeks Disposition: HOME - Home Medications Comprehensive Discharge Medication List: Ambulatory Orders Acetaminophen [Tylenol] 650 mg PO Q6H PRN #30 capsule 11/04/19 Metronidazole [Flagyl] 500 mg PO TID #15 capsule 11/04/19 Ondansetron [Zofran -] 4 mg PO TID PRN #20 tablet 11/04/19 levoFLOXacin [Levaquin] 750 mg PO DAILY 5 Days #5 tab 11/04/19
--- NOTE | 2019-11-04 09:17 | PN ---
Progress Note (short form) - Note Progress Note: Attending Surgeon POD#5 No c/o; tolerating diet and passing flatus and had BM VSS AF abdo-soft;flat and non tender; port sites c/d/i; SHAQUILLE serous and scant; o/w negative. WBC-nl IMP: doing well PLAN: Drain removed and may be discharged to office f/u next week;to be sent home on oral antibiotics. Gray Medrano MD FACS
== END 2019-11-04 10:30 | disposition home or self-care (01) | DRG 342 ==
LOC: FER 17:02 → SUATTDRO 22:00 → FASUSAT 22:00 → FM/S 22:00 → INTOOBSV 22:26 → FM/S 22:26 → UNDOADMOB 22:26 → FM/S 10-30 21:23
PROVIDERS: ADMIT Internal Medicine; ATTEND Nurse Practitioner Acute Care
PROC: 0DTJ4ZZ Resection of Appendix, Percutaneous Endoscopic Approach (ICD-10-PCS; principal; 2019-10-30 13:06)
DX: K35.891 Other acute appendicitis without perforation, with gangrene (principal); K56.7 Ileus, unspecified; K91.89 Other postprocedural complications and disorders of digestive system; N28.1 Cyst of kidney, acquired; K57.90 Diverticulosis of intestine, part unspecified, without perforation or abscess without bleeding; D12.6 Benign neoplasm of colon, unspecified; R50.9 Fever, unspecified; E83.42 Hypomagnesemia; N20.0 Calculus of kidney; Z88.0 Allergy status to penicillin
CPT/HCPCS: 36415; 74019-TC-FY; 74177-TC; 80048; 80053; 81003; 81015; 83735; 85025; 85027; 85610; 86850; 86900; 86901; 88304-TC; 93005; 94760; 99284-25; J0131; J7030; Q9967

== ENCOUNTER 2020-12-29 10:55 | Emergency (ER) | payer OTHER, BC ==
[2020-12-29 11:00] VITALS: TEMP 98; BMI 27.1
[2020-12-29] MEDS ORDERED: ACETAMINOPHEN 1000 MG/100 ML VIAL (NON FORMULARY) IVPB ONE (11:22)
[2020-12-29] MEDS ORDERED: LACTATED RINGERS SOLUTION 1000 ML INFUS.BAG IV ONE (11:22)
[2020-12-29] MEDS ORDERED: ACETAMINOPHEN INJECTION 100 ML IVPB ONE (11:37)
[2020-12-29 11:44] LABS: BASO % 0.4 % (0-2.0); HEMATOCRIT 39.5 % (32.4-45.2); HEMOGLOBIN 13.2 GM/dL (10.7-15.3); LYMPH % 13.6 % (8-40); MCH 31.9 pg (25.7-33.7); MCHC 33.5 g/dl (32.0-36.0); MEAN CELL VOLUME 95.1 fl (80-96); MEAN PLT VOLUME 9.6 fl (7.5-11.1); MONO % 7.2 % (3.8-10.2); NEUT % 77.8 % (42.8-82.8); PLATELET COUNT 145 K/MM3 (134-434); RBC 4.15 M/mm3 (3.60-5.2); RDW 12.8 % (11.6-15.6); WHITE BLOOD COUNT 5.5 K/mm3 (4.0-10.0)
[2020-12-29 12:06] LABS: POTASSIUM 4.3 mmol/L (3.5-5.1)
[2020-12-29 12:07] LABS: ALBUMIN 3.8 g/dl (3.4-5.0); BLOOD UREA NITROGEN 21.4 mg/dL (7-18)
[2020-12-29 12:11] LABS: BILIRUBIN,TOTAL 0.8 mg/dL (0.2-1); TOT PROT 6.8 g/dl (6.4-8.2)
[2020-12-29 12:45] LABS: PH,URINE 5.5 (5.0-8.0); URINE APPEARANCE CLEAR; URINE BILIRUBIN NEGATIVE (NEGATIVE); URINE COLOR YELLOW; URINE GLUCOSE (UA) NEGATIVE (NEGATIVE); URINE KETONE 1+ (NEGATIVE); URINE LEUK ESTERASE NEGATIVE (NEGATIVE); URINE NITRITE NEGATIVE (NEGATIVE); URINE PROTEIN NEGATIVE (NEGATIVE)
[2020-12-29 15:17] VITALS: BP 112/65; PULSE 78
== END 2020-12-29 15:44 | disposition home or self-care (01) ==
LOC: JER 10:55
PROC: 3E033NZ Introduction of Analgesics, Hypnotics, Sedatives into Peripheral Vein, Percutaneous Approach (ICD-10-PCS; principal; 2020-12-29)
DX: R10.32 Left lower quadrant pain (principal); K52.9 Noninfective gastroenteritis and colitis, unspecified
CPT/HCPCS: 36415; 71045-TC-FY; 74177-TC; 80053; 81003; 83605; 83690; 85025; 87086; 99285-25; J0131; Q9967

== ENCOUNTER 2021-01-20 04:51 | Day surgery (SDC) | payer OTHER, BC ==
[2021-01-16 16:32] VITALS: BMI 26.7
[2021-01-20 10:50] VITALS: TEMP 98.2
[2021-01-20 11:24] VITALS: PULSE 80
[2021-01-20 12:34] VITALS: BP 117/99
== END 2021-01-20 11:53 | disposition home or self-care (01) ==
LOC: JASU-ENDO 04:51
PROVIDERS: ATTEND Internal Medicine Gastroenterology
PROC: 0DBN8ZX Excision of Sigmoid Colon, Via Natural or Artificial Opening Endoscopic, Diagnostic (ICD-10-PCS; 2021-01-20)
PROC: 0DBP8ZX Excision of Rectum, Via Natural or Artificial Opening Endoscopic, Diagnostic (ICD-10-PCS; 2021-01-20)
PROC: 0DBB8ZX Excision of Ileum, Via Natural or Artificial Opening Endoscopic, Diagnostic (ICD-10-PCS; 2021-01-20)
PROC: 0DBH8ZX Excision of Cecum, Via Natural or Artificial Opening Endoscopic, Diagnostic (ICD-10-PCS; 2021-01-20)
PROC: 0DBH8ZX Excision of Cecum, Via Natural or Artificial Opening Endoscopic, Diagnostic (ICD-10-PCS; 2021-01-20)
PROC: 0DBL8ZX Excision of Transverse Colon, Via Natural or Artificial Opening Endoscopic, Diagnostic (ICD-10-PCS; 2021-01-20)
PROC: 0DBK8ZX Excision of Ascending Colon, Via Natural or Artificial Opening Endoscopic, Diagnostic (ICD-10-PCS; principal; 2021-01-20 10:00)
DX: D12.3 Benign neoplasm of transverse colon (principal); D12.0 Benign neoplasm of cecum; K52.9 Noninfective gastroenteritis and colitis, unspecified; K57.30 Diverticulosis of large intestine without perforation or abscess without bleeding; K64.8 Other hemorrhoids; Z88.0 Allergy status to penicillin; Z88.1 Allergy status to other antibiotic agents; Z88.2 Allergy status to sulfonamides
CPT/HCPCS: 87177; 87209; 88305-TC

== ENCOUNTER 2021-11-11 17:50 | Emergency (ER) | payer OTHER, BC ==
[2021-11-11 18:04] VITALS: TEMP 97.8; BMI 25.9
[2021-11-11 18:58] LABS: ALBUMIN 3.7 g/dl (3.4-5.0); BILIRUBIN,TOTAL 0.4 mg/dl (0.2-1); CALCIUM 8.7 mg/dl (8.5-10); CREATININE 1.1 mg/dl (0.55-1.3); MAGNESIUM 1.8 mg/dL (1.8-2.4); TOT PROT 6.4 g/dl (6.4-8.2)
[2021-11-11 20:31] LABS: BASO % 0.7 % (0-2.0); EOS % 1.5 % (0-4.5); HEMATOCRIT 36.2 % (32.4-45.2); HEMOGLOBIN 12.2 GM/dL (10.7-15.3); LYMPH % 24.9 % (8-40); MCHC 33.8 g/dl (32.0-36.0); MEAN CELL VOLUME 91.5 fl (80-96); MONO % 8.3 % (3.8-10.2); NEUT % 64.6 % (42.8-82.8); PLATELET COUNT 160 10^3/uL (134-434); RBC 3.95 M/mm3 (3.60-5.2); RDW 13.8 % (11.6-15.6); WHITE BLOOD COUNT 5.5 K/mm3 (4.0-10.0)
[2021-11-11 20:48] VITALS: BP 126/79; PULSE 79
== END 2021-11-11 20:49 | disposition home or self-care (01) ==
LOC: FER 17:50
DX: R00.2 Palpitations (principal)
CPT/HCPCS: 36415; 71045-TC-FY; 80053; 83735; 84443; 84484; 85025; 93005; 99285-25

== ENCOUNTER 2022-02-18 05:13 | Day surgery (SDC) | payer OTHER, BC ==
[2022-02-16 11:21] VITALS: BMI 25.9
[2022-02-18 08:37] VITALS: TEMP 97.3
[2022-02-18 09:23] VITALS: BP 94/51; PULSE 76
== END 2022-02-18 09:59 | disposition home or self-care (01) ==
LOC: JASU-ENDO 05:13
PROVIDERS: ATTEND Internal Medicine Gastroenterology
PROC: 0DBN8ZX Excision of Sigmoid Colon, Via Natural or Artificial Opening Endoscopic, Diagnostic (ICD-10-PCS; 2022-02-18)
PROC: 0DBP8ZX Excision of Rectum, Via Natural or Artificial Opening Endoscopic, Diagnostic (ICD-10-PCS; 2022-02-18)
PROC: 0D5H8ZZ Destruction of Cecum, Via Natural or Artificial Opening Endoscopic (ICD-10-PCS; 2022-02-18)
PROC: 0DBH8ZX Excision of Cecum, Via Natural or Artificial Opening Endoscopic, Diagnostic (ICD-10-PCS; principal; 2022-02-18 08:00)
DX: Z86.010 Personal history of colon polyps (principal); D12.0 Benign neoplasm of cecum; D12.5 Benign neoplasm of sigmoid colon; K62.1 Rectal polyp; K57.30 Diverticulosis of large intestine without perforation or abscess without bleeding; K64.8 Other hemorrhoids
CPT/HCPCS: 88305-TC

== ENCOUNTER 2022-02-27 06:22 | Emergency (ER) | payer OTHER, BC ==
[2022-02-27 06:44] VITALS: BMI 25.0
[2022-02-27 08:38] VITALS: BP 117/80; PULSE 88; TEMP 98.1
[2022-02-27 09:16] LABS: BASO % 0.4 % (0-2.0); EOS % 0.7 % (0-4.5); HEMOGLOBIN 13.1 GM/dL (10.7-15.3); LYMPH % 13.5 % (8-40); MCH 31.5 pg (25.7-33.7); MCHC 33.7 g/dl (32.0-36.0); MEAN CELL VOLUME 93.3 fl (80-96); MEAN PLT VOLUME 9.3 fl (7.5-11.1); MONO % 7.7 % (3.8-10.2); NEUT % 77.7 % (42.8-82.8); PLATELET COUNT 149 10^3/uL (134-434); RBC 4.17 M/mm3 (3.60-5.2); WHITE BLOOD COUNT 5.6 K/mm3 (4.0-10.0)
[2022-02-27 09:29] LABS: CALCIUM 9.3 mg/dL (8.5-10.1)
[2022-02-27 09:30] LABS: ALBUMIN 3.6 g/dl (3.4-5.0)
[2022-02-27 09:35] LABS: BILIRUBIN,TOTAL 0.5 mg/dL (0.2-1); TOT PROT 6.5 g/dl (6.4-8.2)
== END 2022-02-27 13:21 | disposition home or self-care (01) ==
LOC: JER 06:22
DX: K62.5 Hemorrhage of anus and rectum (principal)
CPT/HCPCS: 36415; 74177-TC; 80053; 82272; 85025; 93005; 93010; 99285-25; Q9967

== ENCOUNTER 2023-05-17 04:34 | Day surgery (SDC) | payer OTHER, BC ==
[2023-05-13 15:53] VITALS: BMI 26.0
[2023-05-17 08:58] VITALS: RESP 14
[2023-05-17 09:19] VITALS: BP 107/70; PULSE 70; TEMP 98.1
== END 2023-05-17 09:30 | disposition home or self-care (01) ==
LOC: JASU-ENDO 04:34
PROVIDERS: ATTEND Internal Medicine Gastroenterology
PROC: 0DBP8ZX Excision of Rectum, Via Natural or Artificial Opening Endoscopic, Diagnostic (ICD-10-PCS; 2023-05-17)
PROC: 3E0H8GC Introduction of Other Therapeutic Substance into Lower GI, Via Natural or Artificial Opening Endoscopic (ICD-10-PCS; 2023-05-17)
PROC: 0DBH8ZX Excision of Cecum, Via Natural or Artificial Opening Endoscopic, Diagnostic (ICD-10-PCS; principal; 2023-05-17 08:00)
DX: Z12.11 Encounter for screening for malignant neoplasm of colon (principal); D12.0 Benign neoplasm of cecum; D12.8 Benign neoplasm of rectum; K57.30 Diverticulosis of large intestine without perforation or abscess without bleeding; K64.8 Other hemorrhoids; Z86.010 Personal history of colon polyps
CPT/HCPCS: 88305-TC

== ENCOUNTER 2024-05-19 04:28 | Day surgery (SDC) | payer OTHER, BC ==
[2024-05-15 12:46] VITALS: BMI 27.8
[2024-05-19 07:09] VITALS: TEMP 97.3
[2024-05-19 08:37] VITALS: RESP 18
[2024-05-19 10:11] VITALS: BP 102/60; PULSE 63
== END 2024-05-19 10:11 | disposition home or self-care (01) ==
LOC: JASU-ENDO 04:28
PROVIDERS: ATTEND Internal Medicine Gastroenterology
PROC: 0DBN8ZX Excision of Sigmoid Colon, Via Natural or Artificial Opening Endoscopic, Diagnostic (ICD-10-PCS; principal; 2024-05-19 08:00)
DX: Z12.11 Encounter for screening for malignant neoplasm of colon (principal); D12.5 Benign neoplasm of sigmoid colon; K64.8 Other hemorrhoids; K57.30 Diverticulosis of large intestine without perforation or abscess without bleeding; K63.89 Other specified diseases of intestine; Z86.010 Personal history of colon polyps
CPT/HCPCS: 88305-TC